=== PATIENT | female | born 1990 | race Caucasian/White ===

== ENCOUNTER 2021-02-09 12:15 | Emergency (ER) | payer OTHER, MEDICAID, SELFPAY ==
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
[2021-02-09 13:00] VITALS: BP 127/96; PULSE 77; RESP 18; TEMP 36.8; O2SAT 100; BMI 25.8
[2021-02-09] MEDS: Acetaminophen 325 MG TABLET 650 MG PO (13:09)
[2021-02-09] MEDS: clonazePAM 1 MG TABLET 2 MG PO (15:38)
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
[2021-02-09] MEDS: oxyCODONE HCl Immed Release 5 MG TABLET PO ×2 (17:07→20:38)
[2021-02-09 17:18] LABS: MANUAL DIFF FLAG NO
[2021-02-09 17:24] LABS: Basophils Percent Auto 0.3 % (0-2); Eosinophils Percent Auto 0.4 % (0-4); Hematocrit 36.1 % (37.0-47.0); Hemoglobin 11.9 g/dl (12.0-16.0); Imm Gran Abs Auto 0.03 X10*3/uL (0.00-0.03); Imm Gran Pct Auto 0.3 % (0.0-0.4); Lymphocytes Absolute Auto 2.9 X10*3/uL (1.2-4.9); Lymphocytes Percent Auto 30.3 % (20-40); Mean Corpuscular Hemoglobin 26.9 pg (27.0-33.0); Mean Corpuscular Volume 81.5 fL (80.0-98.0); Mean Platelet Volume 11.3 fL (9.4-12.3); Monocytes Absolute Auto 0.6 X10*3/uL (0.1-1.2); Neutrophils Percent Auto 62.7 % (45-73); Platelet Count 277 X10*3/uL (160-400); Red Blood Count 4.43 X10*6/uL (4.20-5.50); Red Cell Distribution Width 14.8 % (11.0-16.0); White Blood Count 9.6 X10*3/uL (4.8-10.8)
[2021-02-09 17:48] LABS: Alanine Aminotransferase 32 U/L (0-31); Albumin Level 4.4 g/dL (3.5-5.0); Alkaline Phosphatase 86 U/L (39-117); Anion Gap 11 (12-20); Aspartate Amino Transferase 34 U/L (5-31); Bilirubin Total 0.7 mg/dL (0.0-1.0); Blood Urea Nitrogen 10 mg/dL (9-16); Calcium 9.4 mg/dL (8.4-10.2); Carbon Dioxide 25 mmol/L (22-29); Chloride 106 mmol/L (96-108); Creatinine Clr Calc Pharmacy 105.6; Estimated Glomerular Filt Rate > 60; Glucose Random 84 mg/dL (60-115); Potassium 4.1 mmol/L (3.3-5.1); Sodium 138 mmol/L (135-145); Total Protein 7.7 g/dL (6.5-8.0)
[2021-02-09 17:53] LABS: HCG Quantitative < 2 mIU/mL
[2021-02-09] MEDS: iohexoL 350 MG/ML 100 ML INFUS..BTL IV (19:18)
[2021-02-09 19:37] VITALS: BP 125/77; PULSE 68; RESP 16; O2SAT 99
[2021-02-09 20:55] VITALS: BP 127/82; PULSE 62; RESP 18; O2SAT 98
== END 2021-02-09 20:56 | disposition home or self-care (01) ==
PROVIDERS: Physician Assistant Medical; Emergency Provider Emergency Medicine; PCP Internal Medicine
DX: S06.0X0A Concussion without loss of consciousness, initial encounter (principal); S83.92XA Sprain of unspecified site of left knee, initial encounter; S83.91XA Sprain of unspecified site of right knee, initial encounter; S76.012A Strain of muscle, fascia and tendon of left hip, initial encounter; S29.011A Strain of muscle and tendon of front wall of thorax, initial encounter; S39.012A Strain of muscle, fascia and tendon of lower back, initial encounter; T14.8XXA Other injury of unspecified body region, initial encounter; R93.7 Abnormal findings on diagnostic imaging of other parts of musculoskeletal system; R10.9 Unspecified abdominal pain; V47.5XXA Car driver injured in collision with fixed or stationary object in traffic accident, initial encounter; Y93.9 Activity, unspecified; Y92.410 Unspecified street and highway as the place of occurrence of the external cause; Y99.9 Unspecified external cause status
CPT/HCPCS: 36415; 70450; 71250; 72125; 73502; 73564; 74177; 80053; 84702; 85025; 99285; 99291; Q9967

== ENCOUNTER → 2021-05-06 10:15 | Outpatient (BNVA) | payer OTHER, SELFPAY | PROVIDERS: PCP Internal Medicine; Visit Provider Anesthesiology ==

== ENCOUNTER 2021-05-12 05:59 | Outpatient (REF) | payer OTHER, SELFPAY ==
--- NOTE | ~2021-05-12 | FL_ITS ---
EXAMINATION: XR FLUOROSCOPY WITH IMAGES CLINICAL INFORMATION: M46.1 - Sacroiliitis, not elsewhere classified COMPARISON: CT pelvis 02/09/2021 TECHNIQUE: Fluoroscopy performed by Dr. Javier Ndiaye. Fluoroscopy time: 0.3 minutes DAP: 0.802 Gycm2 Images: 1 FINDINGS: Spinal needle overlies lower right SI joint. There is contrast in the periarticular soft tissues with probable early intra-articular contrast. No vasculature communication appreciated. FL/FL guidance in treatment room IMPRESSION: Fluoroscopy for pain management procedure.
== END 2021-05-12 06:00 | disposition home or self-care (01) ==
LOC: HO.RADIR 05:59
PROVIDERS: Visit Provider Anesthesiology
DX: M46.1 Sacroiliitis, not elsewhere classified (principal); M47.816 Spondylosis without myelopathy or radiculopathy, lumbar region
CPT/HCPCS: 27096; J3300; Q9967

== ENCOUNTER → 2021-06-15 10:09 | Outpatient (BNVA) | payer OTHER, SELFPAY | PROVIDERS: PCP Internal Medicine; Visit Provider Anesthesiology | DX: M47.816 Spondylosis without myelopathy or radiculopathy, lumbar region (principal); M46.1 Sacroiliitis, not elsewhere classified | CPT/HCPCS: 99212 ==

== ENCOUNTER 2021-09-15 06:25 | Outpatient (REF) | payer OTHER, SELFPAY ==
--- NOTE | ~2021-09-15 | FL_ITS ---
EXAMINATION: XR FLUOROSCOPY WITH IMAGES CLINICAL INFORMATION: Sacroiliitis COMPARISON: May 12, 2021 TECHNIQUE: Fluoroscopy performed by Dr. Javier Ndiaye. Fluoroscopy time: 0.2 minutes DAP: 0.690 Gycm2 Images: 0 FINDINGS: Fluoroscopy for pain management procedure. FL/FL guidance in treatment room IMPRESSION: Fluoroscopy for pain management procedure.
== END 2021-09-15 06:26 | disposition home or self-care (01) ==
LOC: HO.RADIR 06:25
PROVIDERS: Visit Provider Anesthesiology
DX: M46.1 Sacroiliitis, not elsewhere classified (principal); M47.816 Spondylosis without myelopathy or radiculopathy, lumbar region
CPT/HCPCS: 27096; Q9966

== ENCOUNTER → 2022-03-31 14:18 | Outpatient (BNVA) | payer OTHER, SELFPAY | PROVIDERS: PCP Internal Medicine; Visit Provider Anesthesiology | DX: Z13.89 Encounter for screening for other disorder (principal) ==

== ENCOUNTER 2022-11-08 12:17 | Emergency (ER) | payer OTHER, MEDICAID, SELFPAY ==
[2022-11-08] VITALS (7 sets, daily range): BP systolic 114–157; BP diastolic 60–87; PULSE 51–62; RESP 16–18; TEMP 36.6–37.8; O2SAT 98–100; BMI 25.8
--- NOTE | ~2022-11-08 | CT_ITS ---
EXAMINATION: CT HEAD WITHOUT CONTRAST CLINICAL INFORMATION: Facial and extremity numbness, headache COMPARISON: January 2021. TECHNIQUE: Contiguous axial imaging was performed from the skull base to vertex without intravenous administration of contrast. This CT examination was performed using dose optimization techniques as appropriate, variously including the following: *Automated exposure control *Adjustment of mA and/or kV according to patient size (this includes techniques or standardized protocols for targeted exams where dose is matched to indication/reason for exam; i.e. extremities or head) *Use of iterative reconstruction technique DLP: 671 mGy-cm FINDINGS: No evidence for acute hemorrhage or mass effect. Cisterns unremarkable. The intraventricular system appears within normal limits. [place]/white matter differentiation is maintained. No appreciable extra-axial collections. The mastoids and skull base are unremarkable. No appreciable calvarial disruption. CT/CT head/brain wo IV con IMPRESSION: No acute intracranial pathology. No significant changes since previous evaluation.
--- NOTE | 2022-11-08 12:37 | ED_ITS ---
HPI - General Adult General Chief complaint: General Medical Stated complaint: dizzy facial numbness Time Seen by Provider: 11/08/22 20:21 Source: patient, RN notes reviewed and old records reviewed Mode of arrival: ambulatory Limitations: no limitations History of Present Illness HPI narrative: 32-year-old female with past medical history significant for anxiety, depression, hypothyroidism presents for evaluation of headache, nausea, dizziness. Patient reports that she vomited 1 time yesterday. She reports having numbness and tingling to her lower lip ever since. She denies any abdominal pain. She does report increased urination today but she feels it is mild She reports a frontal headache that is a at 10 with some light sensitivity No other complaints or concerns at this time. Related Data Home Medications Medication Instructions Recorded Confirmed clonazepam 1 mg tablet 1 mg PO TID 05/06/21 prazosin 2 mg capsule 2 mg PO BEDTIME 05/06/21 venlafaxine 75 mg capsule,extended 75 mg PO DAILY 05/06/21 release 24 hr Previous Rx's Medication Instructions Recorded acetaminophen 500 mg tablet 1,000 mg PO QID PRN fever or pain 02/09/21 (Tylenol Extra Strength) #14 tabs cyclobenzaprine 10 mg tablet 10 mg PO Q8H PRN Muscle spasm #14 02/09/21 tabs ibuprofen 800 mg tablet 800 mg PO Q8H PRN pain #14 tabs 02/09/21 oxycodone 5 mg tablet 5 mg PO Q6H PRN pain #14 tabs 02/09/21 tizanidine 4 mg capsule 4 mg PO Q8H PRN muscle spasticity 03/31/22 30 days #90 caps cefdinir 300 mg capsule 300 mg PO BID #14 caps 11/08/22 Allergies Allergy/AdvReac Type Severity Reaction Status Date / Time metoclopramide [From Reglan] AdvReac Nausea Verified 03/31/22 14:34 Review of Systems Constitutional: Constitutional: Reports as per HPI, Denies chills, Denies fatigue and Denies fever(s) Cardiovascular: Cardiovascular: Denies chest pain and Denies dyspnea Respiratory: Respiratory: Denies cough and Denies dyspnea Gastrointestinal: Gastrointestinal: Denies abdominal pain and Denies const ipation Neurologic: Denies focal weakness Endocrine: Endocrine: Denies fatigue [facility] Past Medical History Medical History (Updated 08/14/23 @ 20:46 by Cassius Jones) Anxiety Depression Sacroiliitis Spondylosis of lumbar spine Tear of MCL (medial collateral ligament) of knee Surgical History Tubal ligation status Social History Social History Alcohol intake: current Alcohol intake frequency: a few times a month Smoked in Last 30 Days: No Use of substances other than those prescribed or required for medical reasons: No Advance Directives: No Advance Directives Information Provided: No Physical Exam ED Vital Signs: Vital Signs - 24 hr 11/08/22 12:36 11/08/22 17:39 11/08/22 20:13 Temperature 98 F 98.1 F 98.9 F Pulse Rate 62 52 Respiratory Rate 18 16 Blood Pressure 131/81 156/69 H Pulse Oximetry 100 98 Oxygen Delivery Method Room Air Room Air 11/08/22 20:33 11/08/22 20:34 11/08/22 20:36 Temperature Pulse Rate 59 51 56 Respiratory Rate Blood Pressure 121/66 124/73 157/87 H Pulse Oximetry Oxygen Delivery Method BMI result Body Mass Index 25.8 Const General: healthy appearing, comfortable, no acute distress, alert and awake Nutritional Appearance: well nourished Orientation/consciousness: patient oriented x3 HENMT Head: Yes normocephalic and Yes atraumatic Throat: Yes posterior oropharynx normal Eyes Eyelids: Yes eyelids normal Conjunctivae: conjunctivae normal Sclerae: sclerae normal Corneas: corneas normal Pupils: Equal, round and reactive pupils present EOM: EOMs intact bilaterally Neck Neck: Yes full ROM Resp Effort & Inspection: normal respiratory effort, able to speak in complete sentences and not labored Cardio Rate: regular rate Rhythm: regular rhythm GI Inspection: No distended Palpation (GI): Soft to palpation, not firm, nontender, no guarding and not rigid Skin General skin exam: no rashes or lesions noted and elasticity normal Neuro General: patient oriented x3 Cranial nerves: Yes CN's II-XII intact bilaterally, Yes Equal, round and reactive pupils present and Yes Bilaterally intact EOM present Cognition (Neuro): normal cognition Extrem Other: Moving all extremities well without any obvious deformities Course Course Course Narrative: RME: 32yo F w/PMHx thyroid CA s/p thyroidectomy c/o c/o lower lip/chin, bilateral and feet numbness/tingling since 02:00AM Tuesday morning. Reports symptoms have been worsening. Also reports dizziness & off balance. Also reports chronic migraines. Denies taking anticoagulation, fall Patient in wheelchair in triage, no focal neuro deficits EKG, labs, UA, head CT and orthostatics ordered Full HPI, ROS and PE to be performed by primary ED provider. Medical Decision Making Medical Decision Making [facility] Narrative: 32-year-old female presents for evaluation of multiple complaints including headache, nausea. Showed severe to have a UTI. She is CT scan of brain that was unremarkable, labs are reassuring. Will get orthostatics to evaluate for volume status. Clinically the patient does not appear dehydrated. Will treat her headache with Fioricet and Toradol. Differential Diagnosis Differential Diagnoses: The differential diagnosis associated with the presentation includes Viral syndrome COVID-19 UTI Pyelonephritis Orthostasis Dehydration JOE Acute headache Lab Data [facility] Lab Attestation statement: I reviewed the patient's lab results. No leukocytosis with a white count 6.8, patient has a very mild anemia with a normal hemoglobin of 12.0 and a hematocrit just below normal at 36.6. Platelet count normal limits. Electrolytes and renal function within normal limits. UA appears to show acute infection with 4+ bacteria as well as nitrates, leukocyte esterase 11/08/22 13:07 11/08/22 13:07 Labs: Lab Results 11/08/22 11/08/22 11/08/22 Range/Units 13:07 13:07 13:07 WBC 6.8 (4.8-10.8) X10*3/uL RBC 4.21 (4.20-5.50) X10*6/uL Hgb 12.0 (12.0-16.0) g/dl Hct 36.6 L (37.0-47.0) % MCV 86.9 (80.0-98.0) fL MCH 28.5 (27.0-33.0) pg MCHC 32.8 (31.0-35.0) g/dl RDW 13.2 (11.0-16.0) % Plt Count 256 (160-400) X10*3/uL MPV 10.7 (9.4-12.3) fL Immature Gran % (Auto) 0.3 (0.0-0.4) % Neut % (Auto) 57.2 (45-73) % Lymph % (Auto) 33.8 (20-40) % [place] % (Auto) 6.0 (2-11) % Eos % (Auto) 2.4 (0-4) % Baso % (Auto) 0.3 (0-2) % Lymph # (Auto) 2.3 (1.2-4.9) X10*3/uL [place] # (Auto) 0.4 (0.1-1.2) X10*3/uL Eos # (Auto) 0.2 (0.0-0.4) X10*3/uL Baso # (Auto) 0.0 (0.0-0.2) X10*3/uL Abs Immat Gran (auto) 0.02 (0.00-0.03) X10*3/uL Absolute Neuts (auto) 3.9 (2.0-8.3) x10*3/uL Absolute Nucleated RBC 0.000 (0.0-0.012) X10*3/uL Nucleated RBC % (auto) 0.0 (0.0-0.2) /100WBC PT 12.4 (11.1-13.3) SEC INR 1.0 (0.9-1.1) Sodium 141 (135-145) mmol/L Potassium 3.8 (3.3-5.1) mmol/L Chloride 108 (96-108) mmol/L Carbon Dioxide 25 (22-29) mmol/L Anion Gap 12 (12-20) BUN 10 (9-16) mg/dL Creatinine 0.78 (0.5-1.4) mg/dL Estim Creat Clear Calc 110.3 Estimated GFR > 60 Random Glucose 83 (60-115) mg/dL Calcium 9.7 (8.4-10.2) mg/dL Magnesium 1.9 (1.6-2.6) mg/dL Total Bilirubin 0.5 (0.0-1.0) mg/dL Direct Bilirubin 0.2 (0.0-0.5) mg/dL AST 15 (5-31) U/L ALT 13 (0-31) U/L Alkaline Phosphatase 76 (39-117) U/L Total Protein 7.8 (6.5-8.0) g/dL Albumin 4.2 (3.5-5.0) g/dL Urine Color Urine Appearance Urine pH (5.0-9.0) Ur Specific [place] (1.005-1.025) Urine Protein (Neg-Trace) mg/dL Urine Glucose (UA) (Negative) mg/dL Urine Ketones (Negative) mg/dL Urine Blood (Negative) Urine Nitrite (Negative) Ur Leukocyte Esterase (Negative) Urine RBC (0-2) /HPF Urine WBC (0-5) /HPF Ur Squamous Epith Cells (0-2) /HPF Urine Bacteria (None Seen) Hyaline Casts (0-2) /LPF Urine Test (NEGATIVE) 11/08/22 11/08/22 Range/Units 17:46 17:46 WBC (4.8-10.8) X10*3/uL RBC (4.20-5.50) X10*6/uL Hgb (12.0-16.0) g/dl Hct (37.0-47.0) % MCV (80.0-98.0) fL MCH (27.0-33.0) pg MCHC (31.0-35.0) g/dl RDW (11.0-16.0) % Plt Count (160-400) X10*3/uL MPV (9.4-12.3) fL Immature Gran % (Auto) (0.0-0.4) % Neut % (Auto) (45-73) % Lymph % (Auto) (20-40) % [place] % (Auto) (2-11) % Eos % (Auto) (0-4) % Baso % (Auto) (0-2) % Lymph # (Auto) (1.2-4.9) X10*3/uL [place] # (Auto) (0.1-1.2) X10*3/uL Eos # (Auto) (0.0-0.4) X10*3/uL Baso # (Auto) (0.0-0.2) X10*3/uL Abs Immat Gran (auto) (0.00-0.03) X10*3/uL Absolute Neuts (auto) (2.0-8.3) x10*3/uL Absolute Nucleated RBC (0.0-0.012) X10*3/uL Nucleated RBC % (auto) (0.0-0.2) /100WBC PT (11.1-13.3) SEC INR (0.9-1.1) Sodium (135-145) mmol/L Potassium (3.3-5.1) mmol/L Chloride (96-108) mmol/L Carbon Dioxide (22-29) mmol/L Anion Gap (12-20) BUN (9-16) mg/dL Creatinine (0.5-1.4) mg/dL Estim Creat Clear Calc Estimated GFR Random Glucose (60-115) mg/dL Calcium (8.4-10.2) mg/dL Magnesium (1.6-2.6) mg/dL Total Bilirubin (0.0-1.0) mg/dL Direct Bilirubin (0.0-0.5) mg/dL AST (5-31) U/L ALT (0-31) U/L Alkaline Phosphatase (39-117) U/L Total Protein (6.5-8.0) g/dL Albumin (3.5-5.0) g/dL Urine Color Yellow Urine Appearance Turbid Urine pH 6.5 (5.0-9.0) Ur Specific [place] 1.020 (1.005-1.025) Urine Protein Trace (Neg-Trace) mg/dL Urine Glucose (UA) Negative (Negative) mg/dL Urine Ketones Negative (Negative) mg/dL Urine Blood Trace H (Negative) Urine Nitrite Positive H (Negative) Ur Leukocyte Esterase Large (3+) H (Negative) Urine RBC 0-2 (0-2) /HPF Urine WBC >50 H (0-5) /HPF Ur Squamous Epith Cells >20 (0-2) /HPF Urine Bacteria 4+ (None Seen) Hyaline Casts 3-5 (0-2) /LPF Urine Test NEGATIVE (NEGATIVE) Independent Interpretation I performed an independent interpretation of an: CT Scan Interpretation: Agree with Radiology interpretation, no acute bleed or obvious mass Radiology Impression Discussion of test interpretation with radiology: I have reviewed the radiologist's reading. Radiologist Impression: No acute intracranial pathology. No significant changes since previous evaluation Discharge Plan Discharge Clinical Impression: Urinary tract infection, Headache Patient Disposition: Home, Self-Care Instructions: Urinary Tract Infection in Women (ED) Additional Instructions: Urine CT scan and blood work not show any concerning findings. Your urine does appear infected. Take cefdinir twice daily for the next 7 days Hydrate well Use Motrin Tylenol for headaches Prescriptions: New cefdinir 300 mg capsule 300 mg PO BID Qty: 14 0RF No Action cyclobenzaprine 10 mg tablet 10 mg PO Q8H PRN (Reason: Muscle spasm) Qty: 14 0RF ibuprofen 800 mg tablet 800 mg PO Q8H PRN (Reason: pain) Qty: 14 0RF acetaminophen [Tylenol Extra Strength] 500 mg tablet 1,000 mg PO QID PRN (Reason: fever or pain) Qty: 14 0RF oxycodone 5 mg tablet 5 mg PO Q6H PRN (Reason: pain) Qty: 14 0RF clonazepam 1 mg tablet 1 mg PO TID venlafaxine 75 mg capsule,extended release 24hr 75 mg PO DAILY prazosin 2 mg capsule 2 mg PO BEDTIME tizanidine 4 mg capsule 4 mg PO Q8H PRN (Reason: muscle spasticity) 30 Days Qty: 90 5RF
--- NOTE | 2022-11-08 12:40 | ECG_ITS ---
Test Reason : NUMBNESS Blood Pressure : / mmHG Vent. Rate : 060 BPM Atrial Rate : 060 BPM P-R Int : 156 ms QRS Dur : 084 ms QT Int : 414 ms P-R-T Axes : 014 071 059 degrees QTc Int : 414 ms Normal sinus rhythm with sinus arrhythmia Normal ECG No previous ECGs available Referred By: Marielos Palacios Electronically Signed By:SARAH CHAPMAN MD
[2022-11-08 13:12] LABS: MANUAL DIFF FLAG NO
[2022-11-08 13:13] LABS: Basophils Percent Auto 0.3 % (0-2); Eosinophils Absolute Auto 0.2 X10*3/uL (0.0-0.4); Eosinophils Percent Auto 2.4 % (0-4); Hematocrit 36.6 % (37.0-47.0); Imm Gran Abs Auto 0.02 X10*3/uL (0.00-0.03); Imm Gran Pct Auto 0.3 % (0.0-0.4); Lymphocytes Absolute Auto 2.3 X10*3/uL (1.2-4.9); Lymphocytes Percent Auto 33.8 % (20-40); Mean Corpuscular HGB Conc 32.8 g/dl (31.0-35.0); Mean Corpuscular Hemoglobin 28.5 pg (27.0-33.0); Mean Corpuscular Volume 86.9 fL (80.0-98.0); Mean Platelet Volume 10.7 fL (9.4-12.3); Monocytes Absolute Auto 0.4 X10*3/uL (0.1-1.2); Neutrophils Absolute Auto 3.9 x10*3/uL (2.0-8.3); Neutrophils Percent Auto 57.2 % (45-73); Platelet Count 256 X10*3/uL (160-400); Red Blood Count 4.21 X10*6/uL (4.20-5.50); Red Cell Distribution Width 13.2 % (11.0-16.0); White Blood Count 6.8 X10*3/uL (4.8-10.8)
[2022-11-08 13:17] LABS: Prothrombin Time 12.4 SEC (11.1-13.3)
[2022-11-08 13:29] LABS: Alanine Aminotransferase 13 U/L (0-31); Albumin Level 4.2 g/dL (3.5-5.0); Alkaline Phosphatase 76 U/L (39-117); Anion Gap 12 (12-20); Aspartate Amino Transferase 15 U/L (5-31); Bilirubin Direct 0.2 mg/dL (0.0-0.5); Bilirubin Total 0.5 mg/dL (0.0-1.0); Blood Urea Nitrogen 10 mg/dL (9-16); Calcium 9.7 mg/dL (8.4-10.2); Carbon Dioxide 25 mmol/L (22-29); Chloride 108 mmol/L (96-108); Creatinine Clr Calc Pharmacy 110.3; Estimated Glomerular Filt Rate > 60; Glucose Random 83 mg/dL (60-115); Magnesium 1.9 mg/dL (1.6-2.6); Potassium 3.8 mmol/L (3.3-5.1); Sodium 141 mmol/L (135-145); Total Protein 7.8 g/dL (6.5-8.0)
[2022-11-08 17:55] LABS: Appearance Urine Turbid; Color Urine Yellow; Glucose Urine UA Negative (Negative); Leukocyte Esterase Urine Large (3+) (Negative); Nitrite Urine Positive (Negative); PH 6.5 (5.0-9.0); UMIC TRIGGER UACC YES; UPreg QC Valid YES; Urine Blood Trace (Negative); Urine Ketones Negative (Negative); Urine Pregnancy NEGATIVE (NEGATIVE); Urine Protein Trace mg/dL (Neg-Trace)
[2022-11-08 17:58] LABS: Bacteria Urine 4+ (None Seen); RBC Urine 0-2 /HPF (0-2); Squamous Epithelial Cell Urine >20 /HPF (0-2); UACC Culture Trigger YES; WBC Urine >50 /HPF (0-5)
[2022-11-08] MEDS: Butalb/Acetamin/Caff 50/325/40 TABLET 2 TAB PO (20:51)
[2022-11-08] MEDS: Ketorolac Tromethamine 30 MG/ML VIAL IM (20:51)
== END 2022-11-08 21:19 | disposition home or self-care (01) ==
PROVIDERS: Physician Assistant; Emergency Provider Emergency Medicine; PCP Internal Medicine
DX: N39.0 Urinary tract infection, site not specified (principal); B96.20 Unspecified Escherichia coli [E. coli] as the cause of diseases classified elsewhere; R51.9 Headache, unspecified; R20.2 Paresthesia of skin; D64.9 Anemia, unspecified; Z85.850 Personal history of malignant neoplasm of thyroid; Z79.899 Other long term (current) drug therapy
CPT/HCPCS: 36415; 70450; 80048; 80076; 81001; 81025; 83735; 85025; 85610; 87086; 87088; 87186; 93005; 96372; 99284; 99285; J1885

== ENCOUNTER → 2022-11-08 12:40 | Outpatient (BNV) | payer OTHER, MEDICAID, SELFPAY | PROVIDERS: PCP Internal Medicine; Visit Provider Internal Medicine Cardiovascular Disease | DX: I49.9 Cardiac arrhythmia, unspecified (principal) | CPT/HCPCS: 93010 ==

== ENCOUNTER 2023-08-10 14:00 | Outpatient (AMB) | payer OTHER, MEDICAID, SELFPAY ==
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
[2023-08-10 14:23] VITALS: BP 132/84; PULSE 77; RESP 16; O2SAT 98; BMI 26.5
== END 2023-08-10 14:48 | disposition home or self-care (01) ==
PROVIDERS: PCP Internal Medicine; Visit Provider Anesthesiology
DX: M46.1 Sacroiliitis, not elsewhere classified (principal); M47.816 Spondylosis without myelopathy or radiculopathy, lumbar region
CPT/HCPCS: 99214

== ENCOUNTER → 2023-08-10 14:00 | Outpatient (BNVA) | payer OTHER, MEDICAID, SELFPAY | PROVIDERS: PCP Internal Medicine; Visit Provider Anesthesiology ==

== ENCOUNTER 2023-09-07 14:02 | Outpatient (AMB) | payer OTHER, MEDICAID, SELFPAY ==
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
[2023-09-07 14:32] VITALS: BP 115/68; PULSE 61; RESP 14; O2SAT 100; BMI 26.7
== END 2023-09-07 14:41 | disposition home or self-care (01) ==
PROVIDERS: PCP Internal Medicine; Visit Provider Anesthesiology
DX: M46.1 Sacroiliitis, not elsewhere classified (principal); M47.816 Spondylosis without myelopathy or radiculopathy, lumbar region; M51.36 Other intervertebral disc degeneration, lumbar region; M54.16 Radiculopathy, lumbar region
CPT/HCPCS: 99213

== ENCOUNTER → 2023-09-07 14:02 | Outpatient (BNVA) | payer OTHER, MEDICAID, SELFPAY | PROVIDERS: PCP Internal Medicine; Visit Provider Anesthesiology ==

== ENCOUNTER 2023-10-21 13:28 | Outpatient (REF) | payer OTHER, MEDICAID, SELFPAY ==
--- NOTE | ~2023-10-21 | MR_ITS ---
EXAMINATION: MR LUMBAR SPINE WITHOUT CONTRAST CLINICAL INFORMATION: Lumbar radiculopathy. Right lower extremity pain, numbness, and weakness. COMPARISON: CT abdomen and pelvis 04/11/2020. TECHNIQUE: MRI of the lumbar spine was obtained using routine sequences without contrast. FINDINGS: Alignment is normal. Vertebral body heights are preserved. No acute bone marrow signal changes. Intervertebral disc height and signal intensity is maintained at all levels. Annular contours are normal and there is no canal or neuroforaminal compromise. 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 Otherwise no mass effect on the traversing or foraminal nerve roots elsewhere within the [id number] of this examination. No canal stenosis. The tip of the conus medullaris is located at T12-L1. No mass effect on the conus or visualized distal cord signal intensity is normal. Limited visualization of the retroperitoneal anatomy reveals no abnormal findings. Psoas and paraspinal muscle groups are symmetric. 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 Otherwise unremarkable examination. No mass effect on the traversing or foraminal nerve roots. No canal stenosis. Electronically signed by: Kush Laura MD 11/20/2023 03:26 PM EDT
== END 2023-10-21 13:29 | disposition home or self-care (01) ==
LOC: HO.MRI 13:28
PROVIDERS: PCP Internal Medicine; Visit Provider Anesthesiology
DX: M54.16 Radiculopathy, lumbar region (principal); M51.36 Other intervertebral disc degeneration, lumbar region
CPT/HCPCS: 72148

== ENCOUNTER 2023-12-15 09:59 | Outpatient (AMB) | payer OTHER, MEDICAID, SELFPAY ==
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
[2023-12-15 10:19] VITALS: BP 126/82; PULSE 83; RESP 16; O2SAT 99; BMI 26.9
== END 2023-12-15 10:27 | disposition home or self-care (01) ==
PROVIDERS: PCP Internal Medicine; Visit Provider Anesthesiology
DX: M46.1 Sacroiliitis, not elsewhere classified (principal); M47.816 Spondylosis without myelopathy or radiculopathy, lumbar region; M51.36 Other intervertebral disc degeneration, lumbar region; M54.16 Radiculopathy, lumbar region
CPT/HCPCS: 99213

== ENCOUNTER → 2023-12-15 09:59 | Outpatient (BNVA) | payer OTHER, MEDICAID, SELFPAY | PROVIDERS: PCP Internal Medicine; Visit Provider Anesthesiology ==

== ENCOUNTER 2024-07-12 09:04 | Outpatient (AMB) | payer OTHER, MEDICAID, SELFPAY ==
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
[2024-07-12 09:10] VITALS: BP 121/69; PULSE 51; O2SAT 98; BMI 26.2
--- OUTSIDE RECORDS SUMMARY | 2024-07-12 09:58 | XMS_ITS | Patient Health Record ---
Author Organization [facility] Address [address] [place] [address] Care Team Providers Care Group Sales Coordinator Name Role Phone MARVIN MONCADA Primary Care Provide r Unavailable Isha Joe Unavailable [phone] Reason For Referral No Information Medications Medication SIG (Take, Route, Fr equency, Duration) Notes Start Date End Date Status Valtrex 1 GM 1 tablet Orally qd for 90 01/06/2016 Active 27-1 MG as directed Orally qd for 365 days 07/20/2016 Active Multivitamins 1 ORAL daily for -3 Galo-MJ 03/26/2014 Active iron 1 tab Oral Active PROzac 40 MG 1 capsule in the mor rupa Orally Once a day Active Immunizations Vaccine Route Administration Date Status Comme nts HPV (human papillomavirus), quadrivalent, 3 dose schedule Unknown 03/24/2012 Pending Problems Problem Type SNOMED Code ICD Code Onset Dates Problem Status W/U Status Risk Notes Problem Major depression, single episode (39544363) Major depressive disorder, single episode, unspecified (F32.9) Active confirmed Problem Herpetic vulvovaginitis (62480370) Herpesviral vulvovaginitis (A60.04) Active confirmed Problem Ulcerative colitis (02805778) Ulcerative colitis, unspecified with unspecified complications (K51.919) Active confirmed Plan Of Treatment Pending Test Test Name Order Date Aerobic Bacterial Culture 05/18/2016 ONE SWAB 05/18/2016 COMPLETE CBC WITH DIFF 05/18/2016 HSV 1 IGG 01/06/2016 Insurance Providers Payer Name Payer Address Payer Phone Subscriber Number Group Number Insured Name Patient Relationship to Insured Coverage Start Date Coverage End Date [facility] [address] [place] [address] [id number] BINDU EDMOND Natural Child - Insured has Financial Responsibility Medications Administered Medication Instructions Date of Administration Dosage Notes CEFTRIAXONE 05/18/2016 250 mg DRAWN UP WITH 0.9ML OF LIDOCAINE Medical (General) History Medical History History ICD Code Other specified abnormal uterine and vag inal bleeding N93.8 Surgical History Surgery Date(Month/Year) Left Knee Arthroscopy Hospitalization History Reason Date(Month/Year) 1 Vaginal Delivery
== END 2024-07-12 09:25 | disposition home or self-care (01) ==
LOC: HO.PMC 09:05
PROVIDERS: PCP Internal Medicine; Visit Provider Anesthesiology
DX: M46.1 Sacroiliitis, not elsewhere classified (principal); M47.816 Spondylosis without myelopathy or radiculopathy, lumbar region; M53.3 Sacrococcygeal disorders, not elsewhere classified
CPT/HCPCS: 99213

== ENCOUNTER → 2024-07-12 09:04 | Outpatient (BNVA) | payer OTHER, MEDICAID, SELFPAY | PROVIDERS: PCP Internal Medicine; Visit Provider Anesthesiology ==

== ENCOUNTER → 2024-09-04 10:30 | Outpatient (BNV) | payer OTHER, MEDICAID, SELFPAY | PROVIDERS: Visit Provider Psychiatry & Neurology Psychiatry | DX: F33.9 Major depressive disorder, recurrent, unspecified (principal); F90.9 Attention-deficit hyperactivity disorder, unspecified type; F43.10 Post-traumatic stress disorder, unspecified; F50.20 Bulimia nervosa, unspecified | CPT/HCPCS: 99214 ==

== ENCOUNTER 2024-09-06 10:30 | Outpatient (RCR) | payer OTHER, MEDICAID, SELFPAY ==
[2024-08-24 10:22] VITALS: BP 116/68; PULSE 52; RESP 16; TEMP 37.2
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
--- NOTE | 2024-08-30 16:20 | HO.PHP ---
Clients case was opened and reviewed in teams today.
--- NOTE | 2024-09-04 22:04 | HO.PHPPROGNO ---
Subjective Subjective Date of Service: 09/04/24 Reason For Visit: PTSD,anxiety,depression Interim History: Patient seen for follow up. Has continued on ABilify on 2 mg for past week. Denies AE. Sleep issues, disrupted sleep. Executive dysfunction discussed. Does not feel prazosin is doing much for her sleep, still has occasional bed dreams. Denies acute/active PTSD symptoms.. HAs taken higher dose of prazosin but caused issues. Has taken clonidine and Ambien for sleep. Medication Compliance: Yes Side effects from medications: No Attending Groups: Yes Review of Systems Acute medical concerns: No Mental Status Exam Mental Status Exam Narrative: Alert, oriented, in no acute distress. Calm, cooperative, engaged, friendly, animated. Restlessness, no psychomotor agitation or neurovegetative retardation. Eye contact maintained. Mood reactive, affect variable, not irritable or lability. Speech normal. Thought process linear, coherent. Thought content related to stressors, executive dysfunction, denies transient helplessness, hopelessness denies SI, intention, urge or plan. Denies any aggressive ideation or HI. No paranoia or delusional content elicited. No evidence of psychosis. Insight and judgment - fair but adequate Assessment & Plan Assessment & Plan (1) MDD (major depressive disorder), recurrent episode: Status: Acute Code(s): F33.9 - Major depressive disorder, recurrent, unspecified (2) Attention-deficit hyperactivity disorder, unspecified type: Status: Acute Code(s): F90.9 - Attention-deficit hyperactivity disorder, unspecified type (3) PTSD (post-traumatic stress disorder): Status: Acute Code(s): F43.10 - Post-traumatic stress disorder, unspecified (4) Bulimia nervosa: Status: Acute Code(s): F50.20 - Bulimia nervosa, unspecified Plan decrease venlafaxine ER to 187.5 mg qd discontinue prazosin 3 mg start guanfacine ER 1 mg, may move to 2 mg/d (or split) increase Abilify to 3-4 mg qhs start gabapening routine lab work, EKG, UDS as indicated continue to monitor Patient educated on: diagnosis and medication risk/benefits Informed Consent: understands Reason for contiued partial hosp. stay Substantial Risk for: med/psych decompensation Certification I certify that partial hospital treatment is medically necessary due to the symptoms and problems resulting from the patient's mental illness and the failure to treat the patient at the partial hospital level of care would likely result in the patient requiring inpatient psychiatric care which could not be prevented at a less intensive level of care. Total time managing care of this patient today __30__ minutes. Discharge Plan Discharge Attending provider: Blanca Eaton Medications: New aripiprazole 2 mg tablet 2 mg PO BEDTIME Qty: 14 0RF lisdexamfetamine 10 mg capsule 10 mg PO QAM Qty: 30 0RF Rx Instructions: Partial Fill upon patient request. guanfacine 1 mg tablet extended release 24 hr 1 mg PO DAILY Qty: 30 0RF gabapentin 300 mg capsule 300 mg PO BEDTIME Qty: 20 0RF venlafaxine 37.5 mg capsule,extended release 24hr 37.5 mg PO DAILY Qty: 30 0RF Continued baclofen 20 mg tablet 20 mg PO BID 30 Days Qty: 60 8RF Nurtec ODT 75 mg Tablet,Disintegrating 75 mg PO DAILY PRN (Reason: Migraine Headache) prazosin 1 mg Capsule 3 mg PO BEDTIME levothyroxine 100 mcg Tablet 100 mcg PO DAILY topiramate [Topamax] 50 mg Tablet 50 mg PO DAILY PRN (Reason: Migraine Headache) clonazepam 1 mg tablet 1 mg PO TID venlafaxine 75 mg capsule,extended release 24hr 150 mg PO DAILY Discontinued atomoxetine [Strattera] 25 mg Capsule 25 mg PO DAILY Print Language: Ukrainian
--- NOTE | 2024-09-06 17:51 | HO.PHPPROGNO ---
Subjective Subjective Date of Service: 09/06/24 Reason For Visit: PTSD,anxiety,depression Assessment & Plan Certification I certify that partial hospital treatment is medically necessary due to the symptoms and problems resulting from the patient's mental illness and the failure to treat the patient at the partial hospital level of care would likely result in the patient requiring inpatient psychiatric care which could not be prevented at a less intensive level of care. Total time managing care of this patient today ____ minutes. Discharge Plan Discharge Attending provider: Blanca Eaton Medications: New lisdexamfetamine 10 mg capsule 10 mg PO QAM Qty: 30 0RF Rx Instructions: Partial Fill upon patient request. guanfacine 1 mg tablet extended release 24 hr 1 mg PO DAILY Qty: 30 0RF gabapentin 300 mg capsule 300 mg PO BEDTIME Qty: 20 0RF venlafaxine 37.5 mg capsule,extended release 24hr 37.5 mg PO DAILY Qty: 30 0RF Continued baclofen 20 mg tablet 20 mg PO BID 30 Days Qty: 60 8RF Nurtec ODT 75 mg Tablet,Disintegrating 75 mg PO DAILY PRN (Reason: Migraine Headache) levothyroxine 100 mcg Tablet 100 mcg PO DAILY topiramate [Topamax] 50 mg Tablet 50 mg PO DAILY PRN (Reason: Migraine Headache) venlafaxine 75 mg capsule,extended release 24hr 150 mg PO DAILY Changed aripiprazole 5 mg tablet 7.5 mg PO BEDTIME Qty: 30 0RF clonazepam 1 mg tablet 1 mg PO TID PRN (Reason: Anxiety) Qty: 1 0RF Discontinued atomoxetine [Strattera] 25 mg Capsule 25 mg PO DAILY prazosin 1 mg Capsule 3 mg PO BEDTIME Stand Alone Forms: Patient Portal Discharge page Patient Education: Mood Disorders (ED), Mood Disorders (DC), ADHD in Adults (ED), ADHD in Adults (DC), PTSD (Post Traumatic Stress Disorder) (DC) Print Language: Macedonian
== END 2024-09-06 23:59 | disposition home or self-care (01) ==
LOC: HO.PHPA 10:30
PROVIDERS: Visit Provider Psychiatry & Neurology Psychiatry
DX: F33.9 Major depressive disorder, recurrent, unspecified (principal); F90.9 Attention-deficit hyperactivity disorder, unspecified type; F43.10 Post-traumatic stress disorder, unspecified; F50.20 Bulimia nervosa, unspecified; Z79.899 Other long term (current) drug therapy
CPT/HCPCS: 90791; 90853

== ENCOUNTER 2024-11-13 07:09 | Outpatient (AMB) | payer OTHER, MEDICAID, SELFPAY ==
--- OUTSIDE RECORDS SUMMARY | 2024-11-13 07:11 | XMS_ITS ---
Author Name [facility] Organization Unknown Care Team Organization Name Specialty Phone Email Start Date End Da te [facility] NULL Primary Care 02/02/2022 11/14/2023
--- OUTSIDE RECORDS SUMMARY | 2024-11-13 07:11 | XMS_ITS | Patient Health Record ---
Author Organization [facility] Address [address] [place] [address] Care Team Providers Care Trouble Dispatcher Name Role Phone MARVIN MONCADA Primary Care Provide r Blanco Isha Joe Unavailable [phone] Reason For Referral No Information Medications Medication SIG (Take, Route, Fr equency, Duration) Notes Start Date End Date Status Valtrex 1 GM 1 tablet Orally qd; Duration: 90 12/26 Active 27-1 MG as directed Orally q d; Duration: 365 days 07/20/2016 Active Multivitamins 1 ORAL daily; Duration: -3 Galo-MJ 4 Active iron 1 tab Oral Active PROzac 40 MG 1 capsule in the mor rupa Orally Once a day Active Immunizations Vaccine Route Administration Date Status Comme nts HPV (human papillomavirus), quadrivalent, 3 dose schedule Unknown 03/24/2012 Pending Problems Problem Type SNOMED Code ICD Code Onset Dates Problem Status W/U Status Risk Notes Problem Major depression, single episode (63799610) Major depressive disorder, single episode, unspecified (F32.9) Active confirmed Problem Herpetic vulvovaginitis (87559020) Herpesviral vulvovaginitis (A60.04) Active confirmed Problem Ulcerative colitis, unspecified with unspecified complications (K51.919) Active confirmed Plan Of Treatment Pending Test Test Name Order Date Aerobic Bacterial Culture 05/18/2016 ONE SWAB 05/18/2016 COMPLETE CBC WITH DIFF 05/18/2016 HSV 1 IGG 01/06/2016 Insurance Providers Payer Name Payer Address Payer Phone Subscriber Number Group Number Insured Name Patient Relationship to Insured Coverage Start Date Coverage End Date [facility] [address] [place] [address] [phone] [id number] BINDU EDMOND Child - Insured has Financial Responsibility Medications Administered Medication Instructions Date of Administration Dosage Notes CEFTRIAXONE 05/18/2016 250 mg DRAWN UP WITH 0.9ML OF LIDOCAINE Medical (General) History Medical History History ICD Code Other specified abnormal uterine and vag inal bleeding N93.8 Surgical History Surgery Date(Month/Year) Left Knee Arthroscopy Hospitalization History Reason Date(Month/Year) 1 Vaginal Delivery
--- OUTSIDE RECORDS SUMMARY | 2024-11-13 07:11 | XMS_ITS | Clinical Summary ---
Author Organization [facility] [address] [place] [address] [place] [id number] Phone Care Team Providers Care Binding Printer Name Role Phone Nakul Golden MD Primary Care Provider [phone] Allergies Active Allergy Reactions Criticality Noted Date Comments Metoclopramide Headache High 09/13/2019 Tramadol 10/05/2021 Facial swelling Medications topiramate (TOPAMAX) 50 mg tablet Take by mouth. Active rimegepant (Nurtec) 75 mg dispersible tablet Take by mouth. Active SUMAtriptan (IMITREX) 25 mg tablet May repeat dose once after 2 hours, if needed. 3 Active ibuprofen (ADVIL,MOTRIN) 800 mg tablet Take 1 tablet (800 mg total) by mouth every 8 (eight) hours if needed. 3 Active sulfacetamide sodium-sulfur 9-4 % cleanser Apply topically. 2 Active clonazePAM (KlonoPIN) 1 mg disintegrating tablet Take by mouth. Active prazosin (MINIPRESS) 2 mg capsule Take by mouth. Active levothyroxine (SYNTHROID, LEVOTHROID) 100 mcg tabletIndications:S ubclinical hyperthyroidism Take 1 tablet (100 mcg total) by mouth 1 (one) time each day. 90 tablet 5 Active levothyroxine (SYNTHROID, LEVOTHROID) 100 mcg tablet Take 1 tablet (100 mcg total) by mouth 1 (one) time each day. 4 10/19/19 25 Discontin ued(Reord er) Active Problems Problem Noted Date Diagnosed Date Multinodular goiter 04/08/2021 Anxiety 01/26/2018 Mild episode of recurrent ma migue depressive disorder (CMS/[facility] V24) 01/18/2018 Panic disorder 12/15/2017 PTSD (post-traumatic stress disorder) 11/07/2017 Subclinical hyperthyroidism 05/10/2016 Ulcerative colitis ([facility] V24, [facility] V28) Encounters Date Type Department Care Team Description 10/25/2024 10:01 AM EDT - 10/25/2024 11:59 PM EDT Hospital Encounter Radiology Department - [address] [phone] Subclinical hyperthyroidism Discharge Disposition: Home or Self Care 10/18/2024 3:30 PM EDT Office Visit Endocrinology - [address] [phone] Joesph Dinh MD Subclinical hyperthyroidism (Primary Dx); Multinodular goiter 09/04/2024 Telephone Endocrinology - [address] [phone] Joesph Dinh MD Labs Only from Last 3 Months Immunizations Name Administration Dates Next Due Influenza Quadrivalent, 0.5m l, preservative free (Fluarix; FluLaval; Fluzone) ages 6mo and older (Afluria) 3yo and older 02/24/2021,12/25/2019 Influenza trivalent, 0.5mL, preservative free (Fluarix; FluLaval; Fluzone) ages 6mo and older (Afluria) 3 years and older 01/12/2017,03/03/2015,04/03/2014 Influenza, Unspecified 01/11/2018 Meningococcal MCV4P 11/28/2013 Moderna SARS-CoV-2 COVID-19, mRNA, LNP-S, preservative free 05/30/2020,05/02/2020 Tdap Tetanus diptheria acell ular pertussis (Boostrix; Adacel) 7yo and older 12/25/2019,02/09/2017,12/26/2012 Surgical History Surgery Date Site/Laterality Comments SECTION 12/26/2012 PROCEDURE: AL DELIVERY ONLY KNEE SURGERY 2010 PROCEDURE: HISTORICAL KNEE SURGERY; COMMENT: left patellofemoral repair KNEE ARTHROSCOPY 07/28/2021 Right PROCEDURE: AL ARTHROSCOPY AID TX SPINE&/FX KNEE W/O FIXJ; COMMENT: Right knee arthroscopic plica resection. Medial meniscus repair. Partial lateral meniscectomy with Dr. Guan Medical History Medical History Date Comments Ulcerative colitis, chronic (CMS/HCC V24, CMS/HCC V28) DX:Ulcerative colitis, chron ic (HCC) H/O colonoscopy 04/10/2015 DX:H/O colonosco py Refusal of blood transfusion s as patient is Latter-day DX:Refusal of blood trans fusions as patient is Latter-day Subclinical hyperthyroidism DX:S ubclinical hyperthyroidism History of colonoscopy 03/03/2021 DX:Histor y of colonoscopy; COMMENT: at [facility] by Dr. Sarmad Moreno - Normal mucosa in the whole colon and rectum. Multiple cold forceps biopsies were performed for histology. Anxiety state DX:Anxiety state Depressive disorder DX:Depressiv e disorder Family History Medical History Relation Name Comments Other: skin cancer Father Diabetes Mother htn Relation Name Status Comments Father Alive Mother Alive Social History Tobacco Use Types Packs/Day Years Used Date Smoking Tobacco: Never Smokeless Tobacco: Never Alcohol Use Standard Drinks/Week Comments Yes 0 (1 standard drink = 0.6 oz pur e alcohol) Comments Unknown Sex and Gender Information Value Date Recorded Sex Assigned at Not on file Legal Sex Female 10:11 PM EST Gender Identity Not on file Sexual Orientation Not on file Obstetrics History Last Filed Vital Signs Vital Sign Reading Time Taken Comments Blood Pressure 95/65 10/18/2024 3:32 PM EDT Pulse 74 10/18/2024 3:32 PM EDT Temperature - - Respiratory Rate 14 10/18/2024 3:32 PM EDT Oxygen Saturation - - Inhaled Oxygen Concentration - - Weight 74.4 kg (164 lb) 10/18/2024 3:32 PM EDT Height 168.9 cm (5' 6.5 ) 10/18/2024 3:32 PM EDT Body Mass Index 26.07 10/18/2024 3:32 PM EDT Plan of Treatment Health Maintenance Due Date Last Done Comments HIV Screening 04/28/2019 Social Influencers of Health Screening 04/28/2019 Cervical Cancer Screening: Pap Smear 09/10/2019 09/09/2016, 09/09/2016 COVID-19 Vaccine ( season) 2023 05/08/2021, 05/30/2020, 05/02/2020 Depression Screening 03/28/2024 Influenza Vaccine (#1) 2024 , 12/31/2022, 04/15/2022, Additional history exists DTaP,Tdap,and Td Vaccines (11 - Td or Tdap) 12/24/2029 12/25/2019, 02/09/2017, 01/12/2017, Additional history exists Colorectal Cancer Screening: Colonoscopy 03/03/2031 03/03/2021 Hepatitis B Vaccines Completed 04/27/1992, 1991, 1991 HIB Vaccines Completed 01/06/1993, 03/29, 02/14/1992, Additional history exists IPV Vaccines Completed 11/05/1996, 03/29, 02/13/1992, Additional history exists Varicella Vaccines Completed 10/31/2007, 11/02/1995 HPV Vaccines Completed 11/22/2008, 0 07/2007, 11/01/2006 Meningococcal ACWY Vaccine Aged Out 11/28/2013, No longer eligible based on patient's age to complete this topic MMR Vaccines Completed 02/09/2020, 09/1995, 01/06/1993 Hepatitis C Screening Completed 07/06/2022 Hepatitis A Vaccines Aged Out No long er eligible based on patient's age to complete this topic Meningococcal B Vaccine Aged Out No l onger eligible based on patient's age to complete this topic Pneumococcal Vaccine: Pediatrics (0 to 5 Years) and At-Risk Patients (6 to 49 Years) Aged Out No longer eligible based on patient's age to complete this topic RSV Immunization Patients Under 20 months Aged Out No longer eligible based on patient's age to complete this topic Procedures Procedure Name Priority Date/Time Associated Diagnosis Comments HEAD NECK SOFT TISSUE Routine 10/25/2024 10:21 AM EDT Subclinical hyperthyroidism COLONOSCOPY Routine 03/03/2021 HPV Routine 09/09/2016 from Last 3 Months or Most Recently Relevant to Health Maintenance Results * US Head Neck Soft Tissue (10/25/2024 10:21 AM EDT) Anatomical Region Laterality Modality Head and Neck Ultrasound 10/25/2024 12:0 2 PM EDT Impressions 10/25/2024 12:04 PM EDT Unchanged subcentimeter right thyroid nodule. Status post left hemithyroidectomy. No ultrasound abnormality is seen in the left thyroid bed. -------- FINAL REPORT -------- Dictated By: Hamida Kennedy Dictated Date: 10/25/2024 12:02 ET Assigned Physician: Hamida Kennedy Reviewed and Electronically Signed By: Hamida Kennedy Signed Date: 10/25/2024 12:04 ET Workstation ID: [id number] Transcribed By: Self Edit Transcribed Date: 10/25/2024 12:02 ET Narrative 10/25/2024 12:04 PM EDT US HEAD NECK SOFT TISSUE THYROID SOFT TISSUES NECK HISTORY: Nodule? Status post left hemithyroidectomy. FINDINGS: The right lobe of the thyroid gland is normal in echotexture and demonstrates increased vascularity by color Doppler interrogation. 0.5 x 0.2 x 0.4 cm nodule midpole right lobe, previously 0.5 x 0.3 x 0.4 cm. The right lobe of the thyroid measures 4.2 x 0.9 x 1.3 cm. The left lobe of the thyroid is surgically absent. Ultrasound evaluation of the left thyroid bed demonstrates no residual or recurrent thyroid tissue. The thyroid isthmus measures 3 mm in thickness. Procedure Note Hamida Kennedy MD - 10/25/2024 US HEAD NECK SOFT TISSUE THYROID SOFT TISSUES NECK HISTORY: Nodule? Status post left hemithyroidectomy. FINDINGS: The right lobe of the thyroid gland is normal in echotexture anddemonstrates increased vascularity by color Doppler interrogation. 0.5 x 0.2 x 0.4 cm nodule midpole right lobe, previously 0.5 x 0.3 x 0.4cm. The right lobe of the thyroid measures 4.2 x 0.9 x 1.3 cm. The left lobe of the thyroid is surgically absent. Ultrasound evaluationof the left thyroid bed demonstrates no residual or recurrent thyroidtissue. The thyroid isthmus measures 3 mm in thickness. IMPRESSION: Unchanged subcentimeter right thyroid nodule. Status post left hemithyroidectomy. No ultrasound abnormality is seen inthe left thyroid bed. -------- FINAL REPORT -------- Dictated By: Hamida Kennedy Dictated Date: 10/25/2024 12:02 ET Assigned Physician: Hamida Kennedy Reviewed and Electronically Signed By: Hamida Kennedy Signed Date: 10/25/2024 12:04 ET Workstation ID: [id number] Transcribed By: Self Edit Transcribed Date: 10/25/2024 12:02 ET Joesph Dinh MD [facility] US PROCEDURES Final Result * Colonoscopy (03/03/2021) [facility] Colonoscopy no interpretation , abstracted Anatomical Region Laterality Modality Other Historical Provider HEALTH MAINTENANCE Final Result * Cervical Cancer Screening: HPV (09/09/2016) [facility] Cervical Cancer Screening: HPV negative, abstracted Historical Provider HEALTH MAINTENANCE Final Result from Last 3 Months or Most Recently Relevant to Health Maintenance Insurance [employer] Care Teams Binding Printer Relationship Specialty Start Date End Date Nakul Golden MD [address] [place] [id number] PCP - General Internal Medicine 02/11/21
--- OUTSIDE RECORDS SUMMARY | 2024-11-13 07:11 | XMS_ITS | Encounter Summary ---
Author Organization [facility] Address [address] [place] [phone] Phone Care Team Providers Care Pesticide Chemist Name Role Phone BessiedanielMarialuisa Collinsdavid Be DO Primary Car e Provider Nakul Golden MD Primary Care Provider + Encounter Details Date Type Department Care Team (Latest Contact Info) Description 07/23/2019 Transcribe Orders [facility] [address] [place] [address] Faustino Richards, CAROLE [address] [facility] Obstetric[place] [address] [email or web address] Supervision of high-risk of young multigravida (Primary Dx) Social History Tobacco Use Types Packs/Day Years Used Date Smoking Tobacco: Never Smokeless Tobacco: Never Alcohol Use Standard Drinks/Week Comments Never 0 (1 standard drink = 0.6 oz pur e alcohol) Comments Yes Sex and Gender Information Value Date Recorded Sex Assigned at Female 07/10/2019 9:24 AM EDT Legal Sex Female 2:42 PM EDT Gender Identity Female 07/10/2019 9:24 AM EDT Sexual Orientation Straight 07/10/2019 9: 24 AM EDT Occupation Industry Job Start Date Job End Date Working from home Not on file Not on file Not on marjorie e documented as of this encounter Plan of Treatment Not on file documented as of this encounter Visit Diagnoses Diagnosis Supervision of high-risk of young multigravida- Primary documented in this encounter Care Teams Pesticide Chemist Relationship Specialty Start Date End Date Stefain Crystal DO [address] [place] [id number] PCP - General Internal Medicine 03/24/17 11/28/23 Nakul Golden MD [address] [place] [address] [phone] PCP - General 11/29/23 documented as of this encounter Additional Source Comments The information contained in this document represents components of the legal health record. It is not the complete legal health record.[facility]
--- NOTE | 2024-11-13 07:16 | MHC.OFFVIS ---
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 Allergies metoclopramide (From Reglan) Adverse Reaction (Verified 07/12/24 09:11) Nausea PFSH Medical History (Updated 09/05/24 @ 22:37 by Blanca Eaton MD) PTSD (post-traumatic stress disorder) Hyperthyroidism Bulimia nervosa Sacroiliitis Spondylosis of lumbar spine Tear of MCL (medial collateral ligament) of knee Depression Anxiety Surgical History (Updated 08/24/24 @ 10:00 by Marguerite Hernandez RN) H/O knee surgery H/O knee surgery H/O partial thyroidectomy History of hysterectomy Tubal ligation status Social History Household Members: Children Alcohol intake: current Alcohol intake frequency: a few times a month Patient Tobacco Use Status: Never used Tobacco Physical Exam Vital Signs: Last Vital Signs Pulse 58 11/13/24 07:45 Resp 18 11/13/24 07:45 BP 104/68 11/13/24 07:45 Pulse Ox 97 11/13/24 07:17 Oxygen Delivery Method Room Air 11/13/24 07:17 BMI result Body Mass Index 25.8 Assessment & Plan Assessment & Plan (1) Sacroiliitis: Code(s): M46.1 - Sacroiliitis, not elsewhere classified Category: Medical (2) Sacroiliac joint dysfunction of right side: Code(s): M53.3 - Sacrococcygeal disorders, not elsewhere classified Category: Medical Plan Right therapeutic sacroiliac joint injection Informed consent was explained thoroughly to the patient.? All questions about benefits and risks for the procedure were answered. Patient came to the operating room she was positioned prone on the operating table with the pillow under her abdomen.? Time-out was performed delineating correct site and side of the procedure name and date of of the patient. Her lower back and buttocks was prepped with ChloraPrep prepped and draped with sterile towels.C-arm was brought over the operating field and sq picture of patient's pelvis was demonstrated on the screen.? For the right joint tilting C-arm contralateral to the site of the joint of the patient the most posterior portion of the joints were superimposed of the anterior portion of the joint . Skin was injected in the projection of the joint slightly medial to the location of the joint with 25 gauge 1/2 inch needle using local lidocaine 2% mixed with ropivacaine 0.5% 1 to 1 . After that 22 gauge 3 and 1/2 inch needle was driven to the right joint in tunnel vision fashion.? When needle entered the joint capsule injection of the contrast was performed demonstrating intra-articular spread of the contrast.? After that of ropivacaine o.5 % 5 mls mixed with Kenalog 40 mg was injected into the joint.? Upon completion of the injections the needle was removed.? Sterile dressing was applied. Orders: Orders FL guidance in treatment room Today M53.3 - Sacrococcygeal disorders, not elsewhere classified Coding Level of Care Code Procedure Only Diagnoses Sacroiliitis M46.1 Sacroiliac joint dysfunction of right side M53.3
[2024-11-13 07:17] VITALS: BP 108/64; PULSE 65; RESP 18; O2SAT 97; BMI 25.8
[2024-11-13 07:45] VITALS: BP 104/68; PULSE 58; RESP 18
== END 2024-11-13 08:11 | disposition home or self-care (01) ==
PROVIDERS: PCP Internal Medicine; Visit Provider Anesthesiology
DX: M46.1 Sacroiliitis, not elsewhere classified (principal); M53.3 Sacrococcygeal disorders, not elsewhere classified
CPT/HCPCS: 27096

== ENCOUNTER 2024-11-13 07:19 | Outpatient (REF) | payer OTHER, MEDICAID, SELFPAY ==
--- NOTE | ~2024-11-13 | FL_ITS ---
EXAMINATION: FL GUIDANCE ONLY HISTORY: M53.3 - Sacrococcygeal disorders, not elsewhere classified COMPARISON: None available. TECHNIQUE: Fluoroscopy time: 7.8 seconds. Cumulative Dose: 1.4166 mGy. DAP: 0.3578 mGym2 Images: 2. FINDINGS: Fluoroscopic spot films of the right hemipelvis demonstrate a needle and contrast material in the region of the right sacroiliac joint. FL/FL guidance in treatment room IMPRESSION: Fluoroscopy during procedure. Please see procedure report for additional information. Electronically signed by: Kush Christine MD 11/13/2024 08:42 AM EDT
== END 2024-11-13 07:20 | disposition home or self-care (01) ==
LOC: CF 07:19
PROVIDERS: Visit Provider Anesthesiology
DX: M46.1 Sacroiliitis, not elsewhere classified (principal); M53.3 Sacrococcygeal disorders, not elsewhere classified
CPT/HCPCS: 27096; J2003; J2795; J3301; Q9967

== ENCOUNTER 2024-12-13 09:07 | Outpatient (AMB) | payer OTHER, MEDICAID, SELFPAY ==
--- NOTE | 2024-12-13 09:15 | A.OFFVIS_ITS ---
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 Wasserman is in my office after therapeutic sacroiliac joint injection. We discussed today her level of pain after the injection. She reported that for the past month after the procedure she had almost no pain at all in her most painful area on the right lower back. She now feels that the pain is starting to come back she is interested in some permanent solution of sacroiliac joint problem and not continuation of the steroid injections. I gave the patient sacroiliac joint belt. I will see if this sacroiliac joint belt will be helpful for her pain. I will see her in 1 month and if no results from SI joint belt wearing I will schedule her for sacroiliac joint fusion on the right. She reported that in the past she received sacroiliac joint injection on the right with very good results. 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 I consulted this MRI with neurosurgeon and he did not find any pathology which would indicate radiculopathy on the right. I offered the patient to repeat right sacroiliac joint injection, she stated that in the past she had 80% pain relief 6 months after the procedure. She has history of 3 pregnancies with vaginal deliveries. She had physical therapy 8 weeks with home exercise program she reported no help for her pain.? She tried NSAIDs to help her pain which were helpful only minimally info short period of time. [facility] Medical History (Updated 09/05/24 @ 22:37 by Blanca Eaton MD) PTSD (post-traumatic stress disorder) Hyperthyroidism Bulimia nervosa Sacroiliitis Spondylosis of lumbar spine Tear of MCL (medial collateral ligament) of knee Depression Anxiety Surgical History (Updated 08/24/24 @ 10:00 by Marguerite Hernandez RN) H/O knee surgery H/O knee surgery H/O partial thyroidectomy History of hysterectomy Tubal ligation status Social History Household Members: Children Alcohol intake: current Alcohol intake frequency: a few times a month Patient Tobacco Use Status: Never used Tobacco Review of Systems Const All systems reviewed & are unremarkable except as noted in HPI and below ENT Reports Normal hearing present Neuro Reports Normal hearing present, Denies Abnormal speech present and Denies Sensory deficit (Neuro) Physical Exam Vital Signs: Last Vital Signs Pulse 72 12/13/24 09:16 Resp 18 12/13/24 09:16 BP 119/74 12/13/24 09:16 Pulse Ox 100 12/13/24 09:16 Oxygen Delivery Method Room Air 12/13/24 09:16 BMI result Body Mass Index 25.1 Const General: cooperative, healthy appearing, comfortable, well developed, alert and awake Nutritional Appearance: average body habitus and well nourished Orientation/consciousness: patient oriented x3 Limitations: no limitations Chest Chest palpation & inspection: normal inspection of the chest Resp Effort & Inspection: normal respiratory effort, able to speak in complete sentences, no audible wheezes, no cough, respiratory effort not decreased, no grunting and not labored GI Inspection: Yes normal to inspection Back/Spine/Pelvis Other: Tenderness of palpation paraspinal spinal region of lumbar spine. Most tenderness points are in the projection of T12-L1 spinous processes as well as L4-5 S1 spinous processes. Flexing forward and flexing backwards aggravate her pain patient . Farhan test is positive on the right, pelvic compression test is positive on the right, Yeomann test is positive on the right, pelvic di straction test is positive on the right, tenderness on palpation in projection of the right sacroiliac joint. Neuro General: patient oriented x3 Cranial nerves: Yes Normal hearing present Speech: No Abnormal speech present Sensory Exam: No Sensory deficit (Neuro) Assessment & Plan Assessment & Plan (1) Sacroiliitis: Code(s): M46.1 - Sacroiliitis, not elsewhere classified Category: Medical (2) Spondylosis of lumbar spine: Code(s): M47.816 - Spondylosis without myelopathy or radiculopathy, lumbar region Category: Medical (3) Sacroiliac joint dysfunction of right side: Code(s): M53.3 - Sacrococcygeal disorders, not elsewhere classified Category: Medical Plan MRI is positive for conjoined right L4 and L5 sitting in 1 foraminal orifice. Otherwise MRI is unremarkable and normal I discussed the case with our neurosurgery Dr. Garcia who stated that after examination of the MRI he did not see anything indicative of possible radiculopathy. The patient again is in my office complaining on severe pain in the right side with radiation into the right hip. The physical exam is as above. Good results again from sacroiliac joint injection on the right. I offered patient today sacroiliac joint belt. I will see her in 1 month to assess the results of the sacroiliac joint belt. History of prolonged and intensive physical therapy with minimal help. I will see this patient in 1 month to assess the results of the sacroiliac joint belt. I will send her for CT scan of the pelvis to support the diagnosis of the sacroiliitis. It also needed to rule out the red flags of conditions in the pelvis. If the sacroiliac joint belt will not be effective I will schedule her for the sacroiliac joint fusion. Orders: Orders CT pelvis wo IV con Today M46.1 - Sacroiliitis, not elsewhere classified, M53.3 - Sacrococcygeal disorders, not elsewhere classified Patient Instructions: I here by testify that I spent 34 minutes in conversation with this patient as well as planning her care evaluating her prior records and prior diagnostic studies making appropriate orders and organizing this note. Coding Level of Care Code Est Pt Level 4 (97299) Diagnoses Sacroiliitis M46.1 Spondylosis of lumbar spine M47.816 Sacroiliac joint dysfunction of right side M53.3
[2024-12-13 09:16] VITALS: BP 119/74; PULSE 72; RESP 18; O2SAT 100; BMI 25.1
--- OUTSIDE RECORDS SUMMARY | 2024-12-13 10:34 | XMS_ITS | Encounter Summary ---
Author Organization [facility] Address [address] [place] [phone] Phone Care Team Providers Care Flatbed Owner Operator Name Role Phone Stefani Crystal DO Primary Car e Provider Nakul Golden MD Primary Care Provider + Encounter Details Date Type Department Care Team (Late st Contact Info) Description 02/08/2020 Procedure Pass [facility] [address] [place] [address] Social History Tobacco Use Types Packs/Day Years Used Date Smoking Tobacco: Never Smokeless Tobacco: Never Alcohol Use Standard Drinks/Week Comments Never 0 (1 standard drink = 0.6 oz pur e alcohol) Comments No Sex and Gender Information Value Date Recorded [...] documented as of this encounter Visit Diagnoses Not on filedocumented in this encounter Care Teams Flatbed Owner Operator Relationship Specialty Start Date End Date Stefani Crystal DO [address] [place] [address] PCP - General Internal Medicine 12/28/17 9/2/24 Nakul Golden MD [address] [place] [id number] PCP - General 11/29/23 documented as of this encounter Additional Source Comments The information contained in this document represents components of the legal health record. It is not the complete legal health record.[facility]
--- OUTSIDE RECORDS SUMMARY | 2024-12-13 10:34 | XMS_ITS | Clinical Summary ---
Author Organization [facility] Address [address] [employer] [facility] [address] [place] [phone] Phone Care Team Providers Care Financial Reporting Consultant Name Role Phone Nakul Golden MD Primary Care Provider + Allergies Active Allergy Reactions Criticality Noted Date Comments Metoclopramide Headaches High 09/13/2019 Metoclopramide Hcl Headaches 07/06/2022 Tramadol Swelling 07/06/2022 Medications clonazePAM (KLONOPIN) 1 MG tablet 0 Active prazosin (MINIPRESS) 2 MG capsule 1 Active venlafaxine (EFFEXOR-XR) 150 MG 24 hr capsule Take 150 mg by mouth every morning. 3 Active valACYclovir (VALTREX) 500 MG tabletIndications:H erpes simplex vulvovaginitis Take 1 tablet (500 mg total) by mouth daily. 90 tablet 3 4 Active topiramate (TOPAMAX) 50 MG tablet take 1 tablet by mouth everyday at bedtime 4 Active NURTEC ODT 75 mg tablet TAKE 1 TABLET BY MOUTH ONCE NEEDED FOR MIGRAINE HEADACHE Active SUMAtriptan (IMITREX) 25 MG tablet MAY REPEAT DOSE ONCE AFTER 2 HOURS, IF NEEDED. 4 Active baclofen (LIORESAL) 10 MG tablet Take 10 mg by mouth 3 (three) times a day. 4 Active levothyroxine (SYNTHROID, LEVOTHROID) 100 MCG tablet Take 1 tablet by mouth every morning. 4 Active prazosin (MINIPRESS) 1 MG capsule 4 Active acetaminophen (TYLENOL) 325 mg tablet Take 2 tablets (650 mg total) by mouth every 6 (six) hours as needed. 4 Active ibuprofen (ADVIL,MOTRIN) 200 MG tablet Take 3 tablets (600 mg total) by mouth every 6 (six) hours as needed for pain (specific location in comments). 4 Active ondansetron (ZOFRAN-ODT) 4 MG disintegrating tabletIndications:N ausea Take 1 tablet (4 mg total) by mouth every 8 (eight) hours as needed for nausea. 20 tablet 4 Active amitriptyline (ELAVIL) 10 MG tablet Take 10 mg by mouth nightly at bedtime. 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 Assessment & Plan (05/18/2017 10:34 AM EST): Will refer to PT given lack of response to heat and NSAIDs. Anxiety 03/27/2017 Overview (03/27/2017): Patient started on Prozac in hospital. Has had several issues with panic/claustrophobia while post-. Will plan to DC to home on prozac. Encouraged psychiatric care post-. Patient has seen social work. Assessment & Plan (07/30/2019 12:41 PM EDT): We discussed Digna's hx of anxiety and her anxiety specifically related to her experiences of traumatic/difficult labor and delivery and csection. She is not seeing a therapist now; I encouraged her to consider. Refusal of blood transfusion s as patient is Evangelical 03/27/2017 Overview (03/27/2017): Patient confirms no blood products are acceptable. Refusal form signed in hospital. Assessment & Plan (03/27/2017 5:43 PM EST): HCT and VSS are stable. Genital herpes 03/24/2017 Overview (07/12/2019): History of genital herpes Assessment & Plan (03/27/2017 5:35 PM EST): Continue Valtrex 500 mg QD now that delivered for routine non-OB prophylaxis. Resolved Problems Problem Noted Date Diagnosed Date Resolved Date Menorrhagia with regular cycle 10/27/2023 11/29/2023 Normal , unspecified trimester 02/08/2020 03/20/2020 Vomiting 12/28/2019 03/20/2020 Hyperemesis 09/14/2019 03/20/2020 Nausea/vomiting in 09/10/2019 03/20/2020 Overview (12/29/2019): Onset in first trimester, worsening in second trimester. Tried Vit B6/Unisom x 2-3 weeks, not helpful. Behavioral/dietary changes not helpful 09/10/19 restarted Vit B6/unisom, started Reglan PRN 09/12 - admitted for IV , will try zofran 12/28 - admitted for IV hydration and antiemetics Assessment & Plan (09/10/2019 1:28 PM EDT): States she hasn't had much to eat over the past few days, vomited five times yesterday. Feels very dehydrated, c/o cotton mouth. No ketones on urine dip, urine light yellow and clear. Discussed dietary and behavioral changes to improve nausea, as well as pharmacologic mgmt. Plan to restart Vit B6 and Unisom and add in Reglan PRN. May switch PRN to Zofran if not helpful. Pt encouraged to try ice pops and ice chips, small sips Asymptomatic bacteriuria during 08/13/2019 03/20/2020 Overview (09/13/2019): ASB on first trimester culture; treated with Macrobid 08/13/19 Repeat culture sent 09/12 Assessment & Plan (09/10/2019 1:23 PM EDT): Patient completed treatment, needs CRUZ. Unable to void today. Will go to lab in the next 1-2 weeks. Rubella non-immune status, antepartum 07/26/2019 03/20/2020 Assessment & Plan (07/30/2019 12:39 PM EDT): Reviewed status and need for vaccination pp; discussed avoiding exposure during . History of depression 07/13/2019 03/20/2020 Overview (07/13/2019): After second - therapy and benzos helped D/c'd benzos when found out she was History of delivery 07/13/2019 03/20/2020 Overview (07/13/2019): First for intolerance Second for hypotension, tachycardia, and suspected uterine rupture Has anxiety about CS deliveries, mostly because both were emergent. Would like Dr. Barksdale this time; wants option of going outside PP if possible. Uterine rupture during labor 07/13/2019 03/20/2020 Overview (10/16/2019): In second , during TOLAC Maternal hypotension, tachycardia Per op note: Uterine serosa with an ecchymotic appearance at the level of the prior incision. Moderate amt blood in endometrial cavity Plan for delivery at 37 weeks per UpToDate Assessment & Plan (12/25/2019 12:36 PM EDT): Plan on at 37 weeks. It is already booked. She would also like a tubal. Will add to case request. Assessment & Plan (07/30/2019 12:43 PM EDT): Digna expresses anxiety at thought of another csection and was not aware of note indicating uterine rupture. We briefly discussed this and she agrees to continue addressing concerns/anxiety as progresses. We discussed possible benefits of therapeutic support to help with this as well. Supervision of high-risk pre gnancy of young multigravida 07/13/2019 03/20/2020 Overview (12/29/2019): OB-CMI score 1 Group PN care? * Rh pos GC/Chlam neg Tdap * Flu * Hgb 10.3 GTT 75 GBS * PPBC * screening - NT testing Assessment & Plan (12/25/2019 12:35 PM EDT): She notes good movement. She denies any vaginal bleeding, LOF or regular contractions. Flu vax and Tdap today. EPDS of 8 but states that overall she is feeling well and just has some anxiety about the repeat . Assessment & Plan (09/10/2019 1:30 PM EDT): Having a difficult time with nausea, which seems to be steadily worsening. 4 lb weight loss for . Visit today focused on remedies, see problem list. Declines AFP. Plan for anatomy scan and visit in 4-5 weeks Left knee pain 11/09/2017 07/12/2019 IUD (intrauterine device) in place 05/18/2017 07/12/2019 Overview (10/11/2018): Mirena IUD inserted 05/18/2017 by TK Removed 10/11/2018 due to persistent RLQ pelvic pain Assessment & Plan (10/11/2018 11:47 AM EDT): IUD removed today. Will start of nuvaring. If patient doesn't tolerate nuvaring, she has used Maureen in past without any issues; so could consider Kyleena. History of delivery affecting 03/24/2017 03/28/2017 Overview (03/24/2017): Patient presented in labor for TOLAC. care at [facility]. Prior C/S was for FTP at 7-8 cm and face presentation. Assessment & Plan (03/27/2017 5:36 PM EST): Patient required emergent RCS due to maternal hypotension and tachycardia suspicious for uterine rupture. Currently doing well. No operative complications. Encounter for trial of labor 03/24/2017 03/26/2017 Overview (03/24/2017): Patient presented in labor for TOLAC. care at [facility]. Prior C/S was for FTP at 7-8 cm and face presentation. Assessment & Plan (03/25/2017 5:58 PM EST): RCS required Elevated blood pressure affe cting in third trimester, antepartum 03/24/2017 7 Overview (03/24/2017): SBP 150. Normal since. No other signs or sxs of preeclampsia. Normal labs. Will follow. Assessment & Plan (03/24/2017 8:05 AM EST): Currently normotensive. Acute bacterial sinusitis 03/24/2017 Overview (03/24/2017): Patient has been on Augmentin XR BID for sinus infection. Will continue while hospitalized. Assessment & Plan (03/26/2017 1:12 PM EST): Course completed. Will stop augmenting today. Patient is asymptomatic. Herpes simplex virus infection 07/12/2019 Immunizations Immunization Administration Dates Next Due COVID-19 (Pre-01/17) Moderna Vaccine, mRNA, PF 05/30/2020,05/02/2020 DTP 11/05/1996, 4,04/16/1992,02/12,1991 HPV,quadrivalent 11/22/2008,10/31/2007, 7 Hepatitis B 04/27/1992,1991,1991 Hib,PRP-T 01/06/1993, 3,02/14/1992,12/11 INFLUENZA, SPLIT VIRUS, TRIV ALENT W/ PRESERVATIVE IM 01/12/2017,03/03/2015,04/03/2014,12/26,12/25/2008,03/07/2008 IPV 04/20/1993,02/13/1992,1991 Influenza Quadrivalent MDCK Preservative Free IM 04/15/2022 Influenza Quadrivalent Prese rvative Free IM 12/31/2022,02/24/2021,12/25/2019 Influenza quadrivalent nasal 11/25/2009 Influenza, Unspecified Formulation 01/09/2019, MMR 02/09/2020,11/02/1995,01/06/1993 Meningococcal MCV4P 11/28/2013,11/01/2006 Polio - OPV 11/05/1996 Td (adult),2 Lf Tetanus Toxo id, PF, Adsorbed 01/23/2000 Tdap 12/25/2019, 7,01/12/2017,12/26,10/31/2007 Varicella 10/31/2007,11/02/1995 Family History Medical History Relation Comments Diabetes Unspecified Infl. arthritis Unspecified Relation Status Comments Brother Father Maternal Aunt Maternal Grandfather Maternal Grandmother Maternal Uncle Mother Paternal Aunt Paternal Grandfather Paternal Grandmother Paternal Uncle Sister Unspecified Social History Tobacco Use Types Packs/Day Years Used Date Smoking Tobacco: Never Smokeless Tobacco: Never Tobacco Cessation:Counseling Given: Not Answered Alcohol Use Standard Drinks/Week Comments Yes 0 (1 standard drink = 0.6 oz pur e alcohol) special occasions rare Education Answer Date Recorded Are you interested in more education? Not on marjorie e 07/23/2022 Are you concerned about learning? Not on file 07/23/2022 No 07/23/2022 No 07/23/2022 Digital Access Answer Date Recorded No 08/21/2022 No 08/21/2022 Reliable internet access at home? Not on file 08/21/2022 Device with a working camera? Not on file Comments No Sex and Gender Information Value Date Recorded Sex Assigned at Female 07/10/2019 9:24 AM EDT Legal Sex Female 2:42 PM EDT Gender Identity Female 07/10/2019 9:24 AM EDT Sexual Orientation Straight 07/10/2019 9: 24 AM EDT Occupation Industry Job Start Date Job End Date Working from home Not on file Not on file Not on marjorie e Last Filed Vital Signs Vital Sign Reading Time Taken Comments Blood Pressure 110/76 05/29/2024 9:09 AM EST Pulse 56 10/27/2023 6:31 PM EDT Temperature 36.4 C (97.5 F) 10/27/2023 6:31 PM EDT Respiratory Rate 16 10/27/2023 6:31 PM EDT Oxygen Saturation 98% 10/27/2023 6:31 PM EDT Inhaled Oxygen Concentration - - Weight 78 kg (172 lb) 05/29/2024 9:09 AM EST Height 167.6 cm (5' 6 ) 05/29/2024 9:09 AM EST Body Mass Index 27.76 05/29/2024 9:09 AM EST Plan of Treatment Health Maintenance Due Date Last Done Comments TSH LEVEL 1991 DEPRESSION SCREENING 2003 PAP SMEAR 08/10/2024 08/11/2023, 06/26, 07/30/2019, Additional history exists INFLUENZA VACCINE (#1) 2024 , 12/31/2022, 04/15/2022, Additional history exists COVID-19 VACCINE (2024- season) 2024 05/08/2021, 05/30/2020, 05/02/2020 Adult Td,Tdap Booster 12/24/2029 12/25/2019 , 02/09/2017, 01/12/2017, Additional history exists HIB VACCINES Completed 01/06/1993, 03/29, 02/14/1992, Additional history exists MENINGOCOCCAL VACCINES (ACWY) Aged Out 11/28/2013, 11/01/2006 No longer eligibl e based on patient's age to complete this topic HEPATITIS C SCREENING Completed 07/06/2022 , 07/29/2020, 07/23/2019 HIV ONE-TIME SCREENING (18-65 YEARS) Completed 07/06/2022 SMOKING STATUS SCREENING (Once After 26 Yrs) Completed 11/29/2023 HEPATITIS A VACCINES Aged Out No long er eligible based on patient's age to complete this topic MENINGOCOCCAL VACCINES (B) Aged Out N o longer eligible based on patient's age to complete this topic PNEUMOCOCCAL VACCINES (0-49 years) Aged Out No longer eligible based on patient's age to complete this topic Medical Devices Not on file Procedures Procedure Name Priority Date/Time Associated Diagnosis Comments PAP TEST Routine 08/11/2023 12:00 AM EDT HEPATITIS C ANTIBODY, QUALITATIVE Routine 07/06/2022 10:41 AM EDT Routine screening for STI (sexually transmitted infection) from Last 3 Months or Most Recently Relevant to Health Maintenance Results * (ABNORMAL) Pap Test (08/11/2023 12:00 AM EDT) 08/11/2023 08/12/2023 9:1 7 AM EDT Narrative SEE NARRATIVE - 08/17/2023 4:00 [place] [address] Custom Grinder: Zahra Beltran MD [facility] Cytology Report FINAL DIAGNOSIS A. PAP SMEAR (THIN PREP) CE: SPECIMEN ADEQUACY: Satisfactory for evaluation; transformation zone present. INTERPRETATION: EPITHELIAL CELL ABNORMALITY - SQUAMOUS. Atypical squamous cells of undetermined significance. Coccobacilli consistent with shift in zackery This specimen was analyzed by the automated ThinPrep Imaging System ([employer].) and manually rescreened by a college or university business manager and/or pathologist. Electronically Signed Out By: MD Natali Pollack CT(ASCP) By his/her signature above, the pathologist listed as making the Final Diagnosis certifies that he/she has personally reviewed this case and confirmed or corrected the diagnosis. The Pap test is a screening test primarily for squamous cancers and precursors and has associated false-negative and false-positive results. New technologies such as liquid-based preparations may decrease but will not eliminate all false-negative results. Regular sampling and follow-up of unexplained clinical signs and symptoms are recommended to minimize false negative results. PROCEDURES/ADDENDA HPV Testing (Requested) Ordered Date: 08/12/2023 A. PAP SMEAR (THIN PREP) CE: Human Papilloma Virus TEST POSITIVE for high-risk Human Papilloma Virus type Other high risk (non-type 16, 18, or 45) probe set (Includes 31, 33, 35, 39, 51, 52, 56, 58, 59, 66, 68) Note: Additional testing was necessary to identify the most virulent high-risk strains. Negative for high-risk Human Papilloma Virus types 16, 18 and 45. Testing performed by Telly HR-HPV analysis. Clinical correlation is advised. This HPV test was performed at [facility], [address] [place] [address]. This test has been FDA approved for both SurePath and ThinPrep cervical cytology specimens. The accuracy and precision of this test for all other specimen sources has been verified in the Cytopathology Laboratory of the [facility] and has not been cleared or approved by the U.S. Food and Drug Administration. Clinical correlation is advised. CLINICAL HISTORY Date of Last Menstrual Period: 07-20-2023 Infection History: HPV: OTHER HIGH RISK, 2022 Other Clinical Conditions: Screening Pap SPECIMEN SOURCE A: PAP SMEAR (THIN PREP) CE Patient Name: DIGNA CARRION : 1990 (Age: 32) Sex: F Institution: [facility] Location: [facility] Date of Collection: 08/11/2023 Date of Reported: 08/17/2023 16:00 Results to: Gideon Barksdale MD Gideon Barksdale MD CYTOLOGY ORDERABLES Final Result SEE NARRATIVE * Hepatitis C antibody, qualitative (07/06/2022 10:41 AM EDT) HCV NON-REACTIV E NON-REACTI VE [facility] Blood 07/06/2022 10:4 1 AM EDT 07/06/2022 10:44 AM EDT Gideon Barksdale MD LAB BLOOD ORDERABLES Final Resul t [address] [id number] from Last 3 Months or Most Recently Relevant to Health Maintenance Insurance [facility] HPI [facility] TIERED HMO [employer] NET PARTIAL [facility] TIERED HMO [employer] NET PARTIAL SAFETY NET PARTIAL [facility] PARTIAL [facility] TIERED HMO HEALTH SAFETY NET PARTIAL [facility] SAFETY NET PARTIAL [facility] TIERED HMO HEALTH SAFETY NET PARTIAL TIERED HMO [employer] NET PARTIAL [place] [address] TIERED HMO [employer]AF[employer] NET PARTIAL Advance Directives For more information, please contact: [phone] (9AM - 5PM Monik/New_Echo, Tuesday-Tuesday) Documents on File Type Date Recorded Patient Assistant Designer Expl anation Healthcare Proxy 02/11/2020 12:12 PM * Full Code (Latest Code Status on File) Date Activated Date Inactivated Comments 02/08/2020 9:25 AM Question Answer Comments Code Status Confirmed With: Patient * Full Code Date Activated Date Inactivated Comments 02/08/2020 5:49 AM 02/08/2020 9:25 AM Question Answer Comments Code Status Confirmed With: Patient * Full Code Date Activated Date Inactivated Comments 12/28/2019 12:48 AM 02/08/2020 5:39 AM Question Answer Comments Code Status Confirmed With: Patient * Full Code (Presumed) Date Activated Date Inactivated Comments 09/13/2019 3:11 PM 12/28/2019 12:00 AM * Full Code (Presumed) Date Activated Date Inactivated Comments 03/24/2017 7:55 PM 03/28/2017 3:40 PM Care Teams Financial Reporting Consultant Relationship Specialty Start Date End Date Nakul Golden MD [address] [place] [phone] PCP - General 11/29/23 Additional Source Comments The information contained in this document represents components of the legal health record. It is not the complete legal health record.[facility]
--- OUTSIDE RECORDS SUMMARY | 2024-12-13 10:34 | XMS_ITS | Encounter Summary ---
Author Organization [facility] Address [address] [place] [phone] Phone Care Team Providers Care System Specialist Name Role Phone Stefani Crystal DO Primary Car e Provider Nakul Golden MD Primary Care Provider + Encounter Details Date Type Department Care Team (Late st Contact Info) Description 10/27/2023 Procedure Pass OR Admitting Dept - Virtual Department [address] [place] [address] Social History Tobacco Use Types Packs/Day Years [...] on filedocumented in this encounter Care Teams System Specialist Relationship Specialty Start Date End Date Stefani Crystal DO [address] [place] [address] PCP - General Internal Medicine 03/24/17 11/28/23 Nakul Golden MD [address] [place] [address] PCP - General 11/29/23 documented as of this encounter Additional Source Comments The information contained in this document represents components of the legal health record. It is not the complete legal health record.[facility]
--- OUTSIDE RECORDS SUMMARY | 2024-12-13 10:34 | XMS_ITS | Patient Health Record ---
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) Active confirmed Problem Ulcerative colitis (35336852) Ulcerative colitis, unspecified with unspecified complications (K51.919) Active confirmed Plan Of Treatment Pending Test Test Name Order Date Aerobic Bacterial Culture 05/18/2016 ONE SWAB 05/18/2016 COMPLETE CBC WITH DIFF 05/18/2016 HSV 1 IGG 01/06/2016 Insurance Providers Payer Name Payer Address Payer Phone Subscriber Number Group Number Insured Name Patient Relationship to Insured Coverage Start Date Coverage End Date [facility] [address] [place] [address] [id number] [facility] Child - Insured has Financial Responsibility Medications Administered Medication Instructions Date of Administration Dosage Notes CEFTRIAXONE 05/18/2016 250 mg DRAWN UP WITH 0.9ML OF LIDOCAINE Medical (General) History Medical History History ICD Code Other specified abnormal uterine and vag inal bleeding N93.8 Surgical History Surgery Date(Month/Year) Left Knee Arthroscopy Hospitalization History Reason Date(Month/Year) 1 Vaginal Delivery
--- OUTSIDE RECORDS SUMMARY | 2024-12-13 10:34 | XMS_ITS | Encounter Summary ---
Author Organization [facility] Address [address] [place] [phone] Phone Care Team Providers Care Pharmacist Hospital Name Role Phone BessiedanielStefani [place] DO Primary Car e Provider Nakul Golden MD Primary Care Provider + Encounter Details Date Type Department Care Team (Latest Contact Info) Description 07/23/2019 Transcribe Orders [facility] [address] [place] [address] Faustino Richards, CAROLE [address] [facility] [place] [address] [email or web address] Supervision of high-risk of young multigravida [...] Primary documented in this encounter Care Teams Pharmacist Hospital Relationship Specialty Start Date End Date Stefani Crystal DO [address] [place] [phone] PCP - General Internal Medicine 03/24/17 11/28/23 Nakul Golden MD [address] [place] [address] [phone] PCP - General 11/29/23 documented as of this encounter Additional Source Comments The information contained in this document represents components of the legal health record. It is not the complete legal health record.[facility]
--- OUTSIDE RECORDS SUMMARY | 2024-12-13 10:34 | XMS_ITS | Encounter Summary ---
Author Organization [facility] Address [address] [place] [address] Care Team Providers Care Press Offbearer Name Role Phone Nakul Golden MD Primary Care Provider [phone] Reason for Referral * Consultation (Routine) - Closed Specialty Diagnoses / Procedures Referred By Contmargi t Referred To Contact Pain Medicine Diagnoses Sacroiliitis, not elsewhere classified (CMS/HCC V24) Nakul Golden MD [address] [place] [address] Phone: tel: fax: Javier Ndiaye [address] [place] [address] [place] [address] fax: Referral ID Status Reason Start Date Expiration Date V isits Requested Visits Authorized [id number] Closed Specialty Services Required 11/13/2024 11/12/2025 12 12 Reason for Visit * Reason Onset Date Comments Referral 11/13/2024 Pain Medicine In [facility] Referral Encounter Details Date Type Department Care Team (Late st Contact Info) Description 11/13/2024 Telephone Adult Medicine [address] [phone] Nakul Golden MD [address] [place] [address] Social History Tobacco Use Types Packs/Day Years Used Date Smoking Tobacco: Never Smokeless Tobacco: Never Alcohol Use Standard Drinks/Week Comments Yes 0 (1 standard drink = 0.6 oz pur e alcohol) Comments Unknown Sex and Gender Information Value Date Recorded Sex Assigned at Not on file Legal Sex Female 10:11 PM EST Gender Identity Not on file Sexual Orientation Not on file documented as of this encounter Progress Notes * Hafsa Oh - 11/13/2024 10:14 AM EDT What insurance does the patient have today? Payor: @[email or web address]/@[email or web address] Referrals cannot be processed if the insurance is not accurate. If the insurance listed above is NO BILLING INFORMATION FOUND FOR THIS ENCOUNTER then the patients correct insurance must be obtainedand registered in [facility] or their referral can not be processed. Name of person calling to request this referral? [place] [place] [facility] Referred To Provider (Include first and last name): Javier Ndiaye NPI (if known): [phone] Order/Specialty requested pain medicine Chief Complaint (Note: This is not a body part or a procedure): M46.1 Has the patient seen provider for this problem/Dx before? Referred To Provider Address: Referred To Provider Referred To Provider Does patient have an appointment scheduled?: yes If yes, what is the date of the appointment?: 12/13/24 Is this a retro request? no Number of visits requested: 12 Is this appointment related to: MVA or worker compensation? no documented in this encounter Plan of Treatment Scheduled Referrals Name Type Priority Associated Diagnoses Order Schedule Ambulatory referral to Pain Medicine Outpatient Referral Routine Sacroiliitis, not elsewhere classified (CMS/HCC V24) Expected: 11/19/2024, Expires: 11/13/2025 documented as of this encounter Visit Diagnoses Diagnosis Sacroiliitis, not elsewhere classified (CMS/HCC V24)- Primary Sacroiliitis, not elsewhere classified documented in this encounter Care Teams Press Offbearer Relationship Specialty Start Date End Date Nakul Golden MD [address] [place] [address] PCP - General Internal Medicine 02/11/21 documented as of this encounter
--- OUTSIDE RECORDS SUMMARY | 2024-12-13 10:34 | XMS_ITS | Encounter Summary ---
Author Organization [facility] Address [address] [place] [address] Phone Care Team Providers Care Computer Education Teacher Name Role Phone Stefani Crystal DO Primary Car e Provider Nakul Golden MD Primary Care Provider + Encounter Details Date Type Department Care Team (Late st Contact Info) Description 03/24/2017 Procedure Pass [facility] L[facility]D Procedures [address] [place] [address] Social History Tobacco Use Types Packs/Day Years Used Date Smoking Tobacco: Never Smokeless Tobacco: Never Alcohol Use Standard Drinks/Week Comments No 0 (1 standard drink = 0.6 oz pur e alcohol) Comments No Sex and Gender Information Value Date Recorded Sex Assigned at Female 07/10/2019 9:24 AM EDT Legal Sex Female 2:42 PM EDT Gender Identity Female 07/10/2019 9:24 AM EDT Sexual Orientation Straight 07/10/2019 9: 24 AM EDT documented as of this encounter Plan of Treatment Not on file documented as of this encounter Visit Diagnoses Not on filedocumented in this encounter Care Teams Computer Education Teacher Relationship Specialty Start Date End Date Stefani Crystal DO [address] [place] [address] PCP - General Internal Medicine 03/24/17 11/28/23 Nakul Golden MD [address] [place] [address] PCP - General 11/29/23 documented as of this encounter Additional Source Comments The information contained in this document represents components of the legal health record. It is not the complete legal health record.[facility]
--- OUTSIDE RECORDS SUMMARY | 2024-12-13 10:34 | XMS_ITS | Clinical Summary ---
Author Organization [address] Address [address] [place] [phone] Phone Care Team Providers Care Inspector Bicycle Name Role Phone Nakul Golden MD Primary Care Provider [phone] Allergies Active Allergy Reactions Criticality Noted Date [...] mouth. Active levothyroxine (SYNTHROID, LEVOTHROID) 100 mcg tabletIndications:Brown bclinical hyperthyroidism Take 1 tablet (100 mcg total) by mouth 1 (one) time each day. 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 (CMS/HCC V24) 01/18/2018 Panic disorder 12/15/2017 PTSD (post-traumatic stress disorder) 11/07/2017 Subclinical hyperthyroidism 05/10/2016 Ulcerative colitis (CMS/HCC V24, CMS/HCC V28) Encounters Date Type Department Care Team Description 11/13/2024 Telephone Adult Medicine [facility] - [address] [phone] Nakul Golden MD 10/25/2024 10:01 AM EDT - 10/25/2024 11:59 PM EDT Hospital Encounter Radiology Department - [address] [phone] Subclinical hyperthyroidism Discharge Disposition: Home or Self Care 10/18/2024 3:30 PM EDT Office Visit Endocrinology - [address] [phone] Joesph Dinh MD Subclinical hyperthyroidism (Primary Dx); Multinodular goiter from Last 3 Months Immunizations Name Administration [...] Surgery Date Site/Laterality Comments SECTION 12/26/2012 PROCEDURE: TX DELIVERY ONLY KNEE SURGERY 2010 PROCEDURE: HISTORICAL KNEE SURGERY; COMMENT: left patellofemoral repair KNEE ARTHROSCOPY 07/28/2021 Right PROCEDURE: TX ARTHROSCOPY AID TX SPINE&/FX KNEE W/O FIXJ; COMMENT: Right knee arthroscopic plica resection. Medial meniscus repair. Partial lateral meniscectomy with Dr. Guan Medical History Medical History Date Comments Ulcerative colitis, chronic ([facility], [facility] V28) DX:Ulcerative colitis, chron ic ([facility]) H/O colonoscopy 04/10/2015 DX:H/O colonosco py Refusal of blood transfusion s as patient is Congregation DX:Refusal of blood trans fusions as patient is Congregation Subclinical hyperthyroidism DX:S ubclinical hyperthyroidism History of colonoscopy 03/03/2021 DX:Histor y of colonoscopy; COMMENT: at [facility] by Dr. Sarmad Moreno - Normal [...] Cancer Screening: Pap Smear 09/10/2019 09/09/2016, 09/09/2016 Depression Screening 03/28/2024 COVID-19 Vaccine ( season) 2024 05/08/2021, 05/30/2020, 05/02/2020 Influenza Vaccine (#1) 2024 4, 12/31/2022, 04/15/2022, Additional history exists DTaP,Tdap,and Td Vaccines (11 - Td or Tdap) 12/24/2029 12/25/2019, 02/09/2017, 01/12/2017, Additional history exists Colorectal Cancer Screening: Colonoscopy 03/03/2031 03/03/2021 RSV Immunization Adult Patients (1 - 1-dose 75+ series) 09/25/2066 Hepatitis B Vaccines Completed 04/27/1992, 1991, 1991 HIB Vaccines Completed 01/06/1993, 03/29, 02/14/1992, Additional history exists IPV Vaccines Completed 11/05/1996, 03/29, 02/13/1992, Additional history exists Varicella Vaccines Completed 10/31/2007, 11/02/1995 HPV Vaccines Completed 11/22/2008, 07/2007, 11/01/2006 Meningococcal ACWY Vaccine Aged Out [...] Procedure Name Priority Date/Time Associated Diagnosis Comments US HEAD NECK SOFT TISSUE Routine 10/25/2024 10:21 [...] Signed Date: 10/25/2024 12:04 ET Workstation ID: [id number] Transcribed By: Self Edit Transcribed Date: 10/25/2024 [...] Signed Date: 10/25/2024 12:04 ET Workstation ID: [id number] Transcribed By: Self Edit Transcribed Date: 10/25/2024 12:02 ET Joesph Dinh MD IM US PROCEDURES Final Result * Colonoscopy (03/03/2021) Colonoscopy no interpretation , abstracted Anatomical Region Laterality Modality Other Historical Provider HEALTH MAINTENANCE Final Result * Cervical Cancer Screening: HPV (09/09/2016) Cervical Cancer Screening: HPV negative, abstracted Historical Provider HEALTH MAINTENANCE Final Result from Last 3 Months or Most Recently Relevant to Health Maintenance Insurance [employer] Care Teams Inspector Bicycle Relationship Specialty Start Date End Date Nakul Golden MD [address] [place] [phone] PCP - General Internal Medicine 02/11/21
== END 2024-12-13 09:44 | disposition home or self-care (01) ==
LOC: HO.PMC 09:07
PROVIDERS: PCP Internal Medicine; Visit Provider Anesthesiology
DX: M46.1 Sacroiliitis, not elsewhere classified (principal); M47.816 Spondylosis without myelopathy or radiculopathy, lumbar region; M53.3 Sacrococcygeal disorders, not elsewhere classified
CPT/HCPCS: 99214

== ENCOUNTER 2025-01-10 10:19 | Outpatient (AMB) | payer OTHER, MEDICAID, SELFPAY ==
--- NOTE | 2025-01-10 10:21 | MHC.OFFVIS ---
Vital Signs 01/10/25 10:22 Height 5 ft 7 in Weight 159 lb BMI 24.9 BP 124/60 Blood Pressure Location Lt brachial Position Sitting Respiration 16 Pulse 76 Pulse Source Pulse Oximeter Pulse Oximetry (%) 100 Oxygen Delivery Method Room Air Intake Visit Reasons: 1 MONTH FOLLOW UP Flame Cutting Supervisor Required: No Accompanied by: Self / Same As Patient Allergies metoclopramide (From Reglan) Adverse Reaction (Verified 01/10/25 10:25) Nausea HPI Comments Details: Ms. Wasserman is in my office 2 months after therapeutic sacroiliac joint injection. She reports that her pain is starting to come back. We discussed Nevro sacroiliac joint fusion 1st on the right and after that on the left. She is scheduled for CT scan of the pelvis on 02/16/2025. I will see her after that on 02/20/2025. However if she will be able to schedule an appointment with CT scan earlier she will call the office and schedule appointment earlier so we can start working on her pre authorization for the procedure earlier. She reported that in the past she received sacroiliac joint injection on the right with very good results. However lately the SI joint injection effectiveness started to fade. She no longer enjoys 6 7 months of pain relief after SI joint injection. It at the best is 1 month only. 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 I consulted this MRI with neurosurgeon and he did not find any pathology which would indicate radiculopathy on the right. I offered the patient to repeat right sacroiliac joint injection, she stated that in the past she had 80% pain relief 6 months after the procedure. She has history of 3 pregnancies with vaginal deliveries. She had physical therapy 8 weeks with home exercise program she reported no help for her pain.? She tried NSAIDs to help her pain which were helpful only minimally info short period of time. [facility] Medical History (Updated 09/05/24 @ 22:37 by Blanca Eaton MD) PTSD (post-traumatic stress disorder) Hyperthyroidism Bulimia nervosa Sacroiliitis Spondylosis of lumbar spine Tear of MCL (medial collateral ligament) of knee Depression Anxiety Surgical History (Updated 08/24/24 @ 10:00 by Marguerite Hernandez RN) H/O knee surgery H/O knee surgery H/O partial thyroidectomy History of hysterectomy Tubal ligation status Social History Household Members: Children Alcohol intake: current Alcohol intake frequency: a few times a month Patient Tobacco Use Status: Never used Tobacco Review of Systems Const All systems reviewed & are unremarkable except as noted in HPI and below ENT Reports Normal hearing present Neuro Reports Normal hearing present, Denies Abnormal speech present and Denies Sensory deficit (Neuro) Physical Exam Vital Signs: Last Vital Signs Pulse 76 01/10/25 10:22 Resp 16 01/10/25 10:22 BP 124/60 01/10/25 10:22 Pulse Ox 100 01/10/25 10:22 Oxygen Delivery Method Room Air 01/10/25 10:22 BMI result Body Mass Index 24.9 Const General: cooperative, healthy appearing, comfortable, well developed, alert and awake Nutritional Appearance: average body habitus and well nourished Orientation/consciousness: patient oriented x3 Limitations: no limitations Chest Chest palpation & inspection: normal inspection of the chest Resp Effort & Inspection: normal respiratory effort, able to speak in complete sentences, no audible wheezes, no cough, respiratory effort not decreased, no grunting and not labored GI Inspection: Yes normal to inspection Back/Spine/Pelvis Other: Tenderness of palpation paraspinal spinal region of lumbar spine. Most tenderness points are in the projection of T12-L1 spinous processes as well as L4-5 S1 spinous processes. Flexing forward and flexing backwards aggravate her pain patient . Farhan test is positive on the right, pelvic compression test is positive bilaterally, Yeomann test is positive bilaterally, pelvic distraction test is positive bilaterally, tenderness on palpation in projection of the bilateral SI joints. Neuro General: patient oriented x3 Cranial nerves: Yes Normal hearing present Speech: No Abnormal speech present Sensory Exam: No Sensory deficit (Neuro) Assessment & Plan Assessment & Plan (1) Sacroiliitis: Code(s): M46.1 - Sacroiliitis, not elsewhere classified Category: Medical (2) Spondylosis of lumbar spine: Code(s): M47.816 - Spondylosis without myelopathy or radiculopathy, lumbar region Category: Medical (3) Sacroiliac joint dysfunction of right side: Code(s): M53.3 - Sacrococcygeal disorders, not elsewhere classified Category: Medical Plan MRI is positive for conjoined right L4 and L5 sitting in 1 foraminal orifice. Otherwise MRI is unremarkable and normal I discussed the case with our neurosurgery Dr. Garcia who stated that after examination of the MRI he did not see anything indicative of possible radiculopathy. The patient again is in my office complaining on severe pain in the right side with radiation into the right hip. The physical exam is as above. Good results again from sacroiliac joint injection on the right. However it soon started to fade ineffectiveness. SI joint belt was prescribed to the patient. The patient wires at every day during the daytime. She reports minimal help from SI joint belt. In the past she completed multiple sessions of physical therapy which were minimally effective to alleviate her pain. She continues to wear SI joint belt. The results are at the best equivocal. Her CT scan of bony pelvis is scheduled for 02/16/2025, I will see her on 02/20/2025. If she will manage to schedule appointment earlier I will see her earlier. After that we will start planning sacroiliac joint fusion.. We will perform right sacroiliac joint fusion 1st because it is most painful SI joint. SI joint fusion on the left we will follow in 3 weeks after that. Coding Level of Care Code Est Pt Level 3 (11506) Diagnoses Sacroiliitis M46.1 Spondylosis of lumbar spine M47.816 Sacroiliac joint dysfunction of right side M53.3
[2025-01-10 10:22] VITALS: BP 124/60; PULSE 76; RESP 16; O2SAT 100; BMI 24.9
--- OUTSIDE RECORDS SUMMARY | 2025-01-10 12:41 | XMS_ITS | Encounter Summary ---
Author Organization [facility] Address [address] [place] [address] Phone Care Team Providers Care Entry Level Java Developer Name Role Phone BessiedanielStefani Collins [place] DO Primary Car e Provider Nakul Golden MD Primary Care Provider + Encounter Details Date Type Department Care Team (Late st Contact Info) Description 10/27/2023 Procedure Pass OR Admitting Dept - Virtual Department [address] [place] [address] Social History Tobacco Use Types Packs/Day Years [...] on filedocumented in this encounter Care Teams Entry Level Java Developer Relationship Specialty Start Date End Date Stefani Crystal DO PCP - General Internal Medicine 03/24/17 11/28/23 Nakul Golden MD [address] [place] [id number] PCP - General 11/29/23 documented as of this encounter Additional Source Comments The information contained in this document represents components of the legal health record. It is not the complete legal health record.[facility]
--- OUTSIDE RECORDS SUMMARY | 2025-01-10 12:41 | XMS_ITS | Clinical Summary ---
Author Organization [facility] Address [address] [facility] [address] [place] [address] Phone Care Team Providers Care Brewmaster Name Role Phone Nakul Golden MD Primary [...] of blood transfusion s as patient is Restorationist 03/27/2017 Overview (03/27/2017): Patient confirms no blood [...] presented in labor for TOLAC. care at [facility]. Prior C/S was for FTP at 7-8 cm and face presentation. Assessment & Plan (03/27/2017 5:36 PM EST): Patient required emergent RCS due to maternal hypotension and tachycardia suspicious for uterine rupture. Currently doing well. No operative complications. Encounter for trial of labor 03/24/2017 03/26/2017 Overview (03/24/2017): Patient presented in labor for TOLAC. care at [facility]. Prior C/S was for FTP at 7-8 [...] Recently Relevant to Health Maintenance Results * Pap Test (08/11/2023 12:00 AM EDT) [place] [address] Basketball Coach: Zahra Beltran MD BUSINESS OFFICE SPECIALIST Cytology Report FINAL DIAGNOSIS A. PAP SMEAR (THIN PREP) CE: SPECIMEN ADEQUACY: Satisfactory for evaluation; transformation zone present. INTERPRETATION: EPITHELIAL CELL ABNORMALITY - SQUAMOUS. Atypical squamous cells of undetermined significance. Coccobacilli consistent with shift in zackery This specimen was analyzed by the automated ThinPrep Imaging System ([employer].) and manually rescreened by a sack sewer machine and/or pathologist. Electronically Signed Out By: MD [...] 16, 18 and 45. Testing performed by [employer] HR-HPV analysis. Clinical correlation is advised. This HPV test was performed at [facility], [address] [place] [address]. This test has been FDA approved for both SurePath and ThinPrep cervical cytology specimens. The accuracy and precision of this test for all other specimen sources has been verified in the Cytopathology Laboratory of the [facility] and has not been cleared or approved by the U.S. Food and Drug Administration. Clinical correlation is advised. CLINICAL HISTORY Date of Last Menstrual Period: 07-20-2023 Infection History: HPV: OTHER HIGH RISK, 2022 Other Clinical Conditions: Screening Pap SPECIMEN SOURCE A: PAP SMEAR (THIN PREP) CE Patient Name: DIGNA CARRION : 1990 (Age: 32) Sex: F Institution: [facility] Location: [facility] Date of Collection: 08/11/2023 Date of Reported: 08/17/2023 16:00 Results to: Gideon Barksdale MD [facility] Final Diagnosis A. PAP SMEAR (THIN PREP) CE: SPECIMEN ADEQUACY: Satisfactory for evaluation; transformation zone present. INTERPRETATION: EPITHELIAL CELL ABNORMALITY - SQUAMOUS. Atypical squamous cells of undetermined significance. Coccobacilli consistent with shift in zackery This specimen was analyzed by the automated ThinPrep Imaging System ([employer].) and manually rescreened by a sack sewer machine and/or pathologist. [facility] Results\Inte rpretation A. PAP SMEAR (THIN PREP) CE: Human Papilloma Virus TESTPOSITIVE for high-risk Human Papilloma Virus type Other high risk (non-type 16, 18, or 45) probe set (Includes 31, 33, 35, 39, 51, 52, 56, 58, 59, 66, 68) Note: Additional testing was necessary to identify the most virulent high-risk strains.Negative for high-risk Human Papilloma Virus types 16, 18 and 45.Testing performed by [employer] HR-HPV analysis. Clinical correlation is advised. This HPV test was performed at [facility], [address] [place] [address]. This test has been FDA approved for both SurePath and ThinPrep cervical cytology specimens. The accuracy and precision of this test for all other specimen sources has been verified in the Cytopathology Laboratory of the [facility] and has not been cleared or approved by the U.S. Food and Drug Administration. Clinical correlation is advised. [facility] Conversion Type 08/11/2023 9:17 AM EDT Gideon Barksdale MD CYTOLOGY ORDERABLES Edited Resul t - Final Performing Organization Address City/[facility]/ZIP Co de Phone Number [address] [phone] * Hepatitis C antibody, qualitative (07/06/2022 10:41 AM EDT) HCV NON-REACTIV E NON-REACTI VE [facility] Blood 07/06/2022 10:4 1 AM EDT 07/06/2022 10:44 AM EDT Gideon Barksdale MD LAB BLOOD ORDERABLES Final Resul t Performing Organization Address [facility]/ZIP Co de Phone Number [address] [phone] from Last 3 Months or Most Recently Relevant to Health Maintenance Insurance [facility] TIERED HMO HEALTH SAFETY NET [place] [address] [facility] TIERED HMO HEALTH SAFETY NET PARTIAL HEALTH SAFETY NET PARTIAL [facility] SAFETY NET PARTIAL [facility] HPI [facility] TIERED HMO NET PARTIAL Member Subscriber Plan / Payer (Ef fective 2024-Present) Name:Digna Carrion Relation to Subscriber:Self Name:Digna Carrion Payer ID:Not on file Group ID:Not on file Type:Medicaid Address: [place] [id number] HEALTH SAFETY NET PARTIAL [facility] TIERED HMO Member Subscriber Plan / Payer (Ef fective 2023-Present) Name:Digna Carrion Member ID:[id number] Relation to Subscriber:Self Name:Digna Carrion Subscriber ID:[id number] Payer ID:[id number] (NAIC) Group ID:Not on file Type:HMO Address: [address] SAFETY NET PARTIAL Member Subscriber Plan / Payer (Ef fective 2024-Present) Name:Digna Carrion Relation to Subscriber:Self Name:Digna Carrion Payer ID:Not on file Group ID:Not on file Type:Medicaid Address: [place] [id number] [facility] TIERED HMO HEALTH SAFETY NET PARTIAL [facility] HPI [facility] TIERED HMO HEALTH SAFETY NET PARTIAL Advance Directives For more information, please contact: [phone] (9AM - 5PM [facility], Tuesday-Tuesday) Documents on File Type Date Recorded Patient Electrical Panel Builder Expl anation Healthcare Proxy 02/11/2020 12:12 PM [...] 7:55 PM 03/28/2017 3:40 PM Care Teams Brewmaster Relationship Specialty Start Date End Date Nakul Golden MD [address] [place] [id number] PCP - General 11/29/23 Additional Source Comments The information contained in this document represents components of the legal health record. It is not the complete legal health record.[facility]
--- OUTSIDE RECORDS SUMMARY | 2025-01-10 12:41 | XMS_ITS | Encounter Summary ---
Author Organization [facility] Address [address] [place] [address] Phone Care Team Providers Care Sap Technical Architect Name Role Phone BraincynthiafabiolaStefani quiroga DO Primary Car e Provider Nakul Golden MD Primary Care Provider + Encounter Details Date Type Department Care Team (Latest Contact Info) Description 07/23/2019 Transcribe Orders [facility] Laboratory 30 [place] [address] Faustino Richards, CAROLE 30 [facility] [place] [address] [email or web address] Supervision of high-risk of young multigravida (Primary [...] Primary documented in this encounter Care Teams Sap Technical Architect Relationship Specialty Start Date End Date Stefani Crystal DO PCP - General Internal Medicine 03/24/17 11/28/23 Nakul Golden MD [address] [place] [address] PCP - General 11/29/23 documented as of this encounter Additional Source Comments The information contained in this document represents components of the legal health record. It is not the complete legal health record.[facility]
--- OUTSIDE RECORDS SUMMARY | 2025-01-10 12:41 | XMS_ITS | Encounter Summary ---
Author Organization [facility] Address [address] [place] [address] Phone Care Team Providers Care Offset Printer Name Role Phone Stefani Crystal DO Primary Car e Provider Nakul Golden MD Primary Care Provider + Encounter Details Date Type Department Care Team (Late st Contact Info) Description 02/08/2020 Procedure Pass [facility] L&D Procedures 30 [place] [address] Social History Tobacco Use Types Packs/Day Years [...] on filedocumented in this encounter Care Teams Offset Printer Relationship Specialty Start Date End Date Stefani Crystal DO PCP - General Internal Medicine 03/24/17 11/28/23 Nakul Golden MD [address] [place] [id number] PCP - General 11/29/23 documented as of this encounter Additional Source Comments The information contained in this document represents components of the legal health record. It is not the complete legal health record.[facility]
--- OUTSIDE RECORDS SUMMARY | 2025-01-10 12:42 | XMS_ITS | Patient Health Record ---
Author Organization 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 Problem Ulcerative colitis (70416971) Ulcerative colitis, unspecified with unspecified complications (K51.919) Active confirmed Plan Of Treatment Pending Test Test Name Order Date Aerobic Bacterial Culture 05/18/2016 ONE SWAB 05/18/2016 COMPLETE CBC WITH DIFF 05/18/2016 HSV 1 IGG 01/06/2016 Insurance Providers Payer Name Payer Address Payer Phone Subscriber Number Group Number Insured Name Patient Relationship to Insured Coverage Start Date Coverage End Date [facility] [address] [place] [address] [id number] [facility] Child - Insured has Financial Responsibility Medications Administered Medication Instructions Date of Administration Dosage Notes CEFTRIAXONE 05/18/2016 250 mg DRAWN UP WITH 0.9ML OF LIDOCAINE Medical (General) History Medical History History ICD Code Other specified abnormal uterine and vag inal bleeding N93.8 Surgical History Surgery Date(Month/Year) Left Knee Arthroscopy Hospitalization History Reason Date(Month/Year) 1 Vaginal Delivery
--- OUTSIDE RECORDS SUMMARY | 2025-01-10 12:42 | XMS_ITS | Encounter Summary ---
Author Organization [facility] Address [address] [facility] [address] [place] [address] Phone Care Team Providers Care Budget Engineer Name Role Phone Stefani Crystal DO Primary Car e Provider Nakul Golden MD Primary Care Provider + Encounter Details Date Type Department Care Team (Late st Contact Info) Description 03/24/2017 Procedure Pass [facility] L&D Procedures 30 [place] [address] Social History Tobacco Use Types Packs/Day Years [...] on filedocumented in this encounter Care Teams Budget Engineer Relationship Specialty Start Date End Date Stefani Crystal DO PCP - General Internal Medicine 03/24/17 11/28/23 Nakul Golden MD [address] [place] [address] PCP - General 11/29/23 documented as of this encounter Additional Source Comments The information contained in this document represents components of the legal health record. It is not the complete legal health record.[facility]
--- OUTSIDE RECORDS SUMMARY | 2025-01-10 12:42 | XMS_ITS | Clinical Summary ---
Author Organization [address] Address [address] [place] [phone] Phone Care Team Providers Care Statistician Applied Name Role Phone Nakul Golden MD Primary Care Provider [phone] Allergies Active Allergy Reactions Criticality Noted Date [...] Care Team Description 11/13/2024 Telephone Adult Medicine [facility] - [address] [phone] Nakul Golden MD 10/25/2024 10:01 AM EDT - 10/25/2024 11:59 PM EDT Hospital Encounter Radiology Department - [address] [phone] Subclinical hyperthyroidism Discharge Disposition: Home or Self Care 10/18/2024 3:30 PM EDT Office Visit Endocrinology - [address] [phone] Joesph Dinh MD Subclinical hyperthyroidism (Primary Dx); Multinodular goiter from Last 3 Months Immunizations Immunization Administration Dates Next Due Influenza Quadrivalent, 0.5m [...] Surgery Date Site/Laterality Comments SECTION 12/26/2012 PROCEDURE: SC DELIVERY ONLY KNEE SURGERY 2010 PROCEDURE: HISTORICAL KNEE SURGERY; COMMENT: left patellofemoral repair KNEE ARTHROSCOPY 07/28/2021 Right PROCEDURE: SC ARTHROSCOPY AID TX SPINE&/FX KNEE W/O FIXJ; COMMENT: Right knee arthroscopic plica resection. Medial meniscus repair. Partial lateral meniscectomy with Dr. Guan Medical History Medical History Date Comments Ulcerative colitis, chronic ([facility] V24, [facility] V28) DX:Ulcerative colitis, chron ic ([facility]) H/O colonoscopy 04/10/2015 DX:H/O colonosco py Refusal of blood transfusion s as patient is Anabaptist DX:Refusal of blood trans fusions as patient is Anabaptist Subclinical hyperthyroidism DX:S ubclinical hyperthyroidism History of colonoscopy 03/03/2021 DX:Histor y of colonoscopy; COMMENT: at [facility] by Dr. Sarmad Moreno - Normal [...] Signed Date: 10/25/2024 12:04 ET Workstation ID: [id number] Transcribed By: Self Edit Transcribed Date: 10/25/2024 [...] Signed Date: 10/25/2024 12:04 ET Workstation ID: [id number] Transcribed By: Self Edit Transcribed Date: 10/25/2024 [...] Most Recently Relevant to Health Maintenance Insurance [employer] Care Teams Statistician Applied Relationship Specialty Start Date End Date Nakul Golden MD [address] [place] [phone] PCP - General Internal Medicine 02/11/21
== END 2025-01-10 10:30 | disposition home or self-care (01) ==
LOC: HO.PMC 10:19
PROVIDERS: PCP Internal Medicine; Visit Provider Anesthesiology
DX: M46.1 Sacroiliitis, not elsewhere classified (principal); M47.816 Spondylosis without myelopathy or radiculopathy, lumbar region; M53.3 Sacrococcygeal disorders, not elsewhere classified
CPT/HCPCS: 99213

== ENCOUNTER 2025-02-16 09:18 | Outpatient (REF) | payer OTHER, MEDICAID, SELFPAY ==
--- NOTE | ~2025-02-16 | CT_ITS ---
CLINICAL HISTORY: M46.1 - Sacroiliitis, not elsewhere classified Exam: Unenhanced CT of the pelvis with multiplanar reformats. Comparison: None. Findings: Osseous structures: There is no fracture or dislocation. No focal osseous lesions. No significant arthritic changes. Specifically, no evidence of significant sacroiliac arthritic disease with no joint space narrowing, subchondral eburnation or spurring, or erosions. No significant lower lumbar degenerative disease. Trace amount of free pelvic fluid is likely physiologic. No pelvic masses or adenopathy. Uterus appears to be surgically absent. Urinary bladder is nondistended. Visualized bowel loops reveal no wall thickening or distention. The appendix is unremarkable. Impression: 1. Unremarkable CT pelvis. Specifically, no CT evidence of significant sacroiliac arthropathy. This document has been electronically signed by: Stanley Velez MD on 02/18/2025 16:10:57
--- OUTSIDE RECORDS SUMMARY | 2025-02-16 09:21 | XMS_ITS | Encounter Summary ---
Author Organization [facility] Address [address] [place] [address] Phone Care Team Providers Care Marine [employer] Task [employer] Planners Name Role Phone BraincynthiafabiolaStefani quiroga DO Primary Car e Provider Nakul Golden MD Primary Care Provider + Encounter Details Date Type Department Care Team (Latest Contact Info) Description 07/23/2019 Transcribe Orders [facility] Phleb Main 30 [place] [address] Faustino Richards, [facility] 30 [facility] [place] [address] [email or web address] Supervision of high-risk of young multigravida [...] Primary documented in this encounter Care Teams [employer] Planners Relationship Specialty Start Date End Date Stefani Crystal DO [address] [place] [address] PCP - General Internal Medicine 03/24/17 11/28/23 Nakul Golden MD [address] [place] [address] PCP - General 11/29/23 documented as of this encounter Additional Source Comments The information contained in this document represents components of the legal health record. It is not the complete legal health record.[facility]
--- OUTSIDE RECORDS SUMMARY | 2025-02-16 09:21 | XMS_ITS | Clinical Summary ---
Author Organization [address] Address [address] [place] [phone] Phone Care Team Providers Care Branch Office Administrator Name Role Phone Nakul Golden MD Primary Care Provider [phone] Allergies Active Allergy Reactions Criticality Noted Date [...] 05/10/2016 Ulcerative colitis (CMS/HCC V24, CMS/HCC V28) Immunizations Immunization Administration Dates Next Due Influenza [...] Surgery Date Site/Laterality Comments SECTION 12/26/2012 PROCEDURE: OR DELIVERY ONLY KNEE SURGERY 2010 PROCEDURE: HISTORICAL KNEE SURGERY; COMMENT: left patellofemoral repair KNEE ARTHROSCOPY 07/28/2021 Right PROCEDURE: OR ARTHROSCOPY AID TX SPINE&/FX KNEE W/O FIXJ; COMMENT: Right knee arthroscopic plica resection. Medial meniscus repair. Partial lateral meniscectomy with Dr. Guan Medical History Medical History Date Comments Ulcerative colitis, chronic ([facility] V24, [facility] V28) DX:Ulcerative colitis, chron ic ([facility]) H/O colonoscopy 04/10/2015 DX:H/O colonosco py Refusal of blood transfusion s as patient is Quaker DX:Refusal of blood trans fusions as patient is Quaker Subclinical hyperthyroidism DX:S ubclinical hyperthyroidism History of colonoscopy 03/03/2021 DX:Histor y of colonoscopy; COMMENT: at [facility] by Dr. Sarmad Moreno - Normal [...] 05/08/2021, 05/30/2020, 05/02/2020 Influenza Vaccine (#1) 2024 , 12/31/2022, 04/15/2022, [...] Procedure Name Priority Date/Time Associated Diagnosis Comments COLONOSCOPY Routine 03/03/2021 HPV Routine 09/09/2016 from Last 3 Months or Most Recently Relevant to Health Maintenance Results * Colonoscopy (03/03/2021) Colonoscopy no interpretation , abstracted Anatomical Region Laterality Modality Other [facility] Provider HEALTH MAINTENANCE Final Result * Cervical Cancer Screening: HPV (09/09/2016) Cervical Cancer Screening: HPV negative, abstracted Historical Provider HEALTH MAINTENANCE Final Result from Last 3 Months or Most Recently Relevant to Health Maintenance Insurance [employer] Care Teams Branch Office Administrator Relationship Specialty Start Date End Date Nakul Golden MD [address] [place] [phone] PCP - General Internal Medicine 02/11/21
--- OUTSIDE RECORDS SUMMARY | 2025-02-16 09:21 | XMS_ITS | Encounter Summary ---
Author Organization [facility] Address [address] [place] [address] Phone Care Team Providers Care Mixing Supervisor Name Role Phone BessiedanielStefani [place] DO Primary Car e Provider Nakul Golden MD Primary Care Provider + Encounter Details Date Type Department Care Team (Late st Contact Info) Description 10/27/2023 Procedure Pass OR Admitting Dept - Virtual Department 30 [place] [address] Social History Tobacco Use Types Packs/Day Years [...] on filedocumented in this encounter Care Teams Mixing Supervisor Relationship Specialty Start Date End Date Stefani Crystal DO [address] [place] [address] PCP - General Internal Medicine 03/24/17 11/28/23 Nakul Golden MD 4 [place] [address] PCP - General 11/29/23 documented as of this encounter Additional Source Comments The information contained in this document represents components of the legal health record. It is not the complete legal health record.[facility]
--- OUTSIDE RECORDS SUMMARY | 2025-02-16 09:21 | XMS_ITS | Encounter Summary ---
Author Organization [facility] Address [address] [employer] [facility] [address] [place] [address] Phone Care Team Providers Care Sports Health Club Membership Advisors Name Role Phone Stefani Crystal DO Primary Car e Provider Nakul Golden MD Primary Care Provider + Encounter Details Date Type Department Care Team (Late st Contact Info) Description 03/24/2017 Procedure Pass [facility] L&D Procedures 30 [place] [address] Social History Tobacco Use Types Packs/Day Years [...] on filedocumented in this encounter Care Teams Sports Health Club Membership Advisors Relationship Specialty Start Date End Date Stefani Crystal DO [address] [place] [address] PCP - General Internal Medicine 03/24/17 11/28/23 Nakul Golden MD [address] [place] [address] PCP - General 11/29/23 documented as of this encounter Additional Source Comments The information contained in this document represents components of the legal health record. It is not the complete legal health record.[facility]
--- OUTSIDE RECORDS SUMMARY | 2025-02-16 09:21 | XMS_ITS | Clinical Summary ---
Author Organization [facility] Address [address] [facility] [address] [place] [address] Phone Care Team Providers Care Temporary Data Entry Clerk Name Role Phone Nakul Golden MD Primary [...] of blood transfusion s as patient is Mandaen 03/27/2017 Overview (03/27/2017): Patient confirms no blood [...] presented in labor for TOLAC. care at [facility]. Prior C/S was for FTP at 7-8 cm and face presentation. Assessment & Plan (03/27/2017 5:36 PM EST): Patient required emergent RCS due to maternal hypotension and tachycardia suspicious for uterine rupture. Currently doing well. No operative complications. Encounter for trial of labor 03/24/2017 03/26/2017 Overview (03/24/2017): Patient presented in labor for TOLAC. care at [facility]. Prior C/S was for FTP at 7-8 [...] HEPATITIS C SCREENING Completed 07/06/2022 , 07/29/2020, 07/23/2019, Additional history exists HIV ONE-TIME SCREENING (18-65 YEARS) Completed 07/06/2022 [...] Pap Test (08/11/2023 12:00 AM EDT) [place] [address] Prospect Manager: Zahra Beltran MD X RAY TECH Cytology Report FINAL DIAGNOSIS A. PAP SMEAR (THIN PREP) CE: SPECIMEN ADEQUACY: Satisfactory for evaluation; transformation zone present. INTERPRETATION: EPITHELIAL CELL ABNORMALITY - SQUAMOUS. Atypical squamous cells of undetermined significance. Coccobacilli consistent with shift in zackery This specimen was analyzed by the automated ThinPrep Imaging System ([employer] and manually rescreened by a dog license officer supervisor and/or pathologist. Electronically Signed Out By: MD [...] 16, 18 and 45. Testing performed by [employer] HR-HPV analysis. Clinical correlation is advised. This HPV test was performed at [facility], [address] [place] [address]. This test has been FDA approved for both SurePath and ThinPrep cervical cytology specimens. The accuracy and precision of this test for all other specimen sources has been verified in the Cytopathology Laboratory of the [facility] and has not been cleared or approved by the U.S. Food and Drug Administration. Clinical correlation is advised. CLINICAL HISTORY Date of Last Menstrual Period: 07-20-2023 Infection History: HPV: OTHER HIGH RISK, 2022 Other Clinical Conditions: Screening Pap SPECIMEN SOURCE A: PAP SMEAR (THIN PREP) CE Patient Name: DIGNA CARRION : 1990 (Age: 32) Sex: F Institution: [facility] Location: [facility] Date of Collection: 08/11/2023 Date of Reported: 08/17/2023 16:00 Results to: Gideon Barksdale MD [facility] Final Diagnosis A. PAP SMEAR (THIN PREP) CE: SPECIMEN ADEQUACY: Satisfactory for evaluation; transformation zone present. INTERPRETATION: EPITHELIAL CELL ABNORMALITY - SQUAMOUS. Atypical squamous cells of undetermined significance. Coccobacilli consistent with shift in zackery This specimen was analyzed by the automated ThinPrep Imaging System ([employer] and manually rescreened by a dog license officer supervisor and/or pathologist. [facility] Results\Inte rpretation A. PAP SMEAR (THIN PREP) [...] types 16, 18 and 45.Testing performed by [employer] HR-HPV analysis. Clinical correlation is advised. This HPV test was performed at [facility], [address] [place] [address]. This test has been FDA approved for both SurePath and ThinPrep cervical cytology specimens. The accuracy and precision of this test for all other specimen sources has been verified in the Cytopathology Laboratory of the [facility] and has not been cleared or approved by the U.S. Food and Drug Administration. Clinical correlation is advised. [facility] Conversion Type (Conversion Source) 08/11/2023 08/12/2023 9:17 AM EDT Gideon Barksdale MD CYTOLOGY ORDERABLES Edited Resul t - Final Performing Organization Address [facility] Co de Phone Number [address] [address] * Hepatitis C antibody, qualitative (07/06/2022 10:41 AM EDT) HCV NON-REACTIV E NON-REACTI VE [facility] Blood 07/06/2022 10:4 1 AM EDT 07/06/2022 10:44 AM EDT Gideon Barksdale MD LAB BLOOD BKR ORDERABLES Final R esult Performing Organization Address [facility] [[email or web address]] de Phone Number [address] [address] from Last 3 Months or Most Recently Relevant to Health Maintenance Insurance [facility] TIERED HMO HEALTH SAFETY NET PARTIAL [facility] TIERED HMO HEALTH SAFETY NET PARTIAL [facility] SAFETY NET PARTIAL [facility] SAFETY NET PARTIAL [facility] HPI [facility] TIERED HMO NET PARTIAL HEALTH SAFETY NET PARTIAL [facility] TIERED HMO Member Subscriber Plan / Payer (Ef fective 2023-Present) Name:Carrion Dign[employer] Member ID:[id number] Relation to Subscriber:Self Name:Digna Carrion Subscriber ID:[id number] Payer ID:[id number] (NAIC) Group ID:Not on file Type:HMO Address: [address] SAFETY NET PARTIAL [facility] TIERED HMO HEALTH SAFETY [place] [address] [facility] HPI [facility] TIERED HMO HEALTH SAFETY NET PARTIAL Advance Directives For more information, please contact: [phone] (9AM - 5PM [place], Tuesday-Tuesday) Documents on File Type Date Recorded Patient Maternal Fetal Physician Expl anation Healthcare Proxy 02/11/2020 12:12 PM [...] 7:55 PM 03/28/2017 3:40 PM Care Teams Temporary Data Entry Clerk Relationship Specialty Start Date End Date Nakul Golden MD [address] [place] [address] PCP - General 11/29/23 Additional Source Comments The information contained in this document represents components of the legal health record. It is not the complete legal health record.[facility]
--- OUTSIDE RECORDS SUMMARY | 2025-02-16 09:21 | XMS_ITS | Encounter Summary ---
Author Organization [facility] Address [address] [place] [address] Phone Care Team Providers Care Program Advisor Name Role Phone Stefani Crystal DO Primary Car e Provider Nakul Golden MD Primary Care Provider + Encounter Details Date Type Department Care Team (Late st Contact Info) Description 02/08/2020 Procedure Pass [facility] L&D Procedures [address] [place] [address] Social History Tobacco Use Types Packs/Day Years [...] on filedocumented in this encounter Care Teams Program Advisor Relationship Specialty Start Date End Date Stefani Crystal DO [address] [place] [address] PCP - General Internal Medicine 03/24/17 11/28/23 Nakul Golden MD [address] [place] [address] PCP - General 11/29/23 documented as of this encounter Additional Source Comments The information contained in this document represents components of the legal health record. It is not the complete legal health record.[facility]
--- OUTSIDE RECORDS SUMMARY | 2025-02-16 09:21 | XMS_ITS | Patient Health Record ---
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 [address] [place] [address] [id number] ANGEL [facility] Child - Insured has Financial [...]
== END 2025-02-16 09:19 | disposition home or self-care (01) ==
LOC: HO.CT 09:18
PROVIDERS: PCP Internal Medicine; Visit Provider Anesthesiology
DX: M46.1 Sacroiliitis, not elsewhere classified (principal); M53.3 Sacrococcygeal disorders, not elsewhere classified
CPT/HCPCS: 72192

== ENCOUNTER → 2025-02-16 09:21 | Outpatient (BNV) | payer OTHER, MEDICAID, SELFPAY | PROVIDERS: PCP Internal Medicine; Visit Provider Radiology Diagnostic Radiology | DX: M46.1 Sacroiliitis, not elsewhere classified (principal) | CPT/HCPCS: 72192 ==

== ENCOUNTER 2025-02-20 10:22 | Outpatient (AMB) | payer OTHER, MEDICAID, SELFPAY ==
[2025-02-20 10:24] VITALS: BP 128/77; PULSE 70; RESP 16; O2SAT 99; BMI 23.3
--- NOTE | 2025-02-20 10:24 | MHC.OFFVIS ---
Vital Signs 02/20/25 10:24 Height 5 ft 7 in Weight 149 lb BMI 23.3 BP 128/77 Blood Pressure Location Rt brachial Position Sitting Respiration 16 Pulse 70 Pulse Source Pulse Oximeter Pulse Oximetry (%) 99 Oxygen Delivery Method Room Air Intake Visit Reasons: CT FOLLOW UP Softball Coach Required: No Allergies metoclopramide (From Reglan) Adverse Reaction (Verified 02/20/25 10:28) Nausea HPI Comments Details: Ms. Wasserman is in my office 2 months after therapeutic sacroiliac joint injection. She is in my office after CT scan was performance her pelvis. The CT scan does not demonstrate any red flags which would be indicative of the source of the pain in the pelvic bones. She continues to were sacroiliac joint belt, she reports minimal pain relief on the belt. She reports awkwardness of the sacroiliac joint belt and inability to do some chores in it. She continues to do home exercise programs she learned at physical therapy. She tries to stay active and perform functional advent activities. She takes NSAIDs for her pain with minimal relief. She had diagnostic sacroiliac joint injection with at least 9 hours of 100% pain relief. She had several sacroiliac joint steroid injections which resulted initially with prolonged pain relief lasting 6-7 month. However lately of the last sacroiliac joint injection she received resulted only in 1 month pain relief. 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 I consulted this MRI with neurosurgeon and he did not find any pathology which would indicate radiculopathy on the right. I offered the patient to repeat right sacroiliac joint injection, she stated that in the past she had 80% pain relief 6 months after the procedure. She has history of 3 pregnancies with vaginal deliveries. I will schedule this patient for right and 3 weeks after left Nevro SI joint fusion. Patient agreed to go for the procedure. Risks and benefits were explained to the patient. [facility] Medical History (Updated 09/05/24 @ 22:37 by Blanca Eaton MD) PTSD (post-traumatic stress disorder) Hyperthyroidism Bulimia nervosa Sacroiliitis Spondylosis of lumbar spine Tear of MCL (medial collateral ligament) of knee Depression Anxiety Surgical History (Updated 08/24/24 @ 10:00 by Marguerite Hernandez RN) H/O knee surgery H/O knee surgery H/O partial thyroidectomy History of hysterectomy Tubal ligation status Social History Household Members: Children Alcohol intake: current Alcohol intake frequency: a few times a month Patient Tobacco Use Status: Never used Tobacco Review of Systems Const All systems reviewed & are unremarkable except as noted in HPI and below ENT Reports Normal hearing present Neuro Reports Normal hearing present, Denies Abnormal speech present and Denies Sensory deficit (Neuro) Physical Exam Vital Signs: Last Vital Signs Pulse 70 02/20/25 10:24 Resp 16 02/20/25 10:24 BP 128/77 02/20/25 10:24 Pulse Ox 99 02/20/25 10:24 Oxygen Delivery Method Room Air 02/20/25 10:24 BMI result Body Mass Index 23.3 Const General: cooperative, healthy appearing, comfortable, well developed, alert and awake Nutritional Appearance: average body habitus and well nourished Orientation/consciousness: patient oriented x3 Limitations: no limitations Chest Chest palpation & inspection: normal inspection of the chest Resp Effort & Inspection: normal respiratory effort, able to speak in complete sentences, no audible wheezes, no cough, respiratory effort not decreased, no grunting and not labored GI Inspection: Yes normal to inspection Back/Spine/Pelvis Other: Minimal tenderness of palpation paraspinal spinal region of lumbar spine. Flexing forward and flexing backwards aggravate her pain patient . Farhan test is positive on the right, pelvic compression test is positive bilaterally, Yeomann test is positive bilaterally, pelvic distraction test is positive bilaterally, tenderness on palpation in projection of the bilateral SI joints. SLR is negative bilaterally. Reflexes are symmetrical +2 Achilles bilateral and patellar. Neuro General: patient oriented x3 Cranial nerves: Yes Normal hearing present Speech: No Abnormal speech present Sensory Exam: No Sensory deficit (Neuro) Results Reviewed Results Reviewed: MR LUMBAR SPINE WITHOUT CONTRAST CLINICAL INFORMATION: Lumbar radiculopathy. Right lower extremity pain, numbness, and weakness. COMPARISON: CT abdomen and pelvis 04/11/2020. TECHNIQUE: MRI of the lumbar spine was obtained using routine sequences without contrast. FINDINGS: Alignment is normal. Vertebral body heights are preserved. No acute bone marrow signal changes. Intervertebral disc height and signal intensity is maintained at all levels. Annular contours are normal and there is no canal or neuroforaminal compromise. 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 Otherwise no mass effect on the traversing or foraminal nerve roots elsewhere within the [id number] of this examination. No canal stenosis. The tip of the conus medullaris is located at T12-L1. No mass effect on the conus or visualized distal cord signal intensity is normal. Limited visualization of the retroperitoneal anatomy reveals no abnormal findings. Psoas and paraspinal muscle groups are symmetric. 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 Otherwise unremarkable examination. No mass effect on the traversing or foraminal nerve roots. No canal stenosis. CT scan of the pelvis 02/16/2025 Osseous structures there is no fracture or dislocation, no focal osseous lesion, no significant arthritic changes, no significant lower lumbar degenerative disease. Trace amount of free fluid in the pelvis is likely physiologic. No pelvic masses or adenopathy. Uterus appears to be surgically absent. Urinary bladder is nondistended. Visualized bowel loops reveal no wall thickening or distention. The appendix is unremarkable. Impression unremarkable CT pelvis. Assessment & Plan Assessment & Plan (1) Sacroiliitis: Code(s): M46.1 - Sacroiliitis, not elsewhere classified Category: Medical (2) Spondylosis of lumbar spine: Code(s): M47.816 - Spondylosis without myelopathy or radiculopathy, lumbar region Category: Medical (3) Sacroiliac joint dysfunction of right side: Code(s): M53.3 - Sacrococcygeal disorders, not elsewhere classified Category: Medical Plan MRI is positive for conjoined right L4 and L5 sitting in 1 foraminal orifice. Otherwise MRI is unremarkable and normal I discussed the case with our neurosurgery Dr. Garcia who stated that after examination of the MRI he did not see anything indicative of possible radiculopathy. The patient again is in my office complaining on severe pain in the right side with radiation into the right hip. The physical exam is as above. Good results again from sacroiliac joint injection on the right. However it soon started to fade ineffectiveness. SI joint belt was prescribed to the patient. The patient wears it every day during the daytime. She reports minimal help from SI joint belt. In the past she completed multiple sessions of physical therapy which were minimally effective to alleviate her pain. She continues to wear SI joint belt. She reports minimal improvement with the SI joint belt. CT scan results see as above. No focal issues which could explain patient pain not detected on the image. She completed 8 weeks of physical therapy. She continues to do home exercise program. She remains active. She is taking NSAIDs with minimal to moderate pain improvement. Sometimes it requires exuberant doses of the NSAIDs to do the procedure. On physical exam there is very prominent picture of the right SI joint dysfunction as well as some SI joint dysfunction on the left side. We will perform right sacroiliac joint fusion 1st because it is most painful SI joint. SI joint fusion on the left we will follow in 3 weeks after that. Risks and benefits were carefully explained to the patient. Patient agreed to go for the procedure. Coding Level of Care Code Est Pt Level 3 (58050) Diagnoses Sacroiliitis M46.1 Spondylosis of lumbar spine M47.816 Sacroiliac joint dysfunction of right side M53.3
--- OUTSIDE RECORDS SUMMARY | 2025-02-20 12:17 | XMS_ITS | Encounter Summary ---
Author Organization [facility] Address [address] [place] [address] Phone Care Team Providers Care Student Officer Name Role Phone BessiedanielStefani Collins [place] DO Primary Car e Provider Nakul Golden MD Primary Care Provider + Encounter Details Date Type Department Care Team (Late st Contact Info) Description 10/27/2023 Procedure Pass OR Admitting Dept - Virtual Department [address] [place] [address] Social History Tobacco Use Types Packs/Day Years [...] on filedocumented in this encounter Care Teams Student Officer Relationship Specialty Start Date End Date Stefani Crystal DO [address] [place] [address] PCP - General Internal Medicine 03/24/17 11/28/23 Nakul Golden MD [address] [place] [address] PCP - General 11/29/23 documented as of this encounter Additional Source Comments The information contained in this document represents components of the legal health record. It is not the complete legal health record.[facility]
--- OUTSIDE RECORDS SUMMARY | 2025-02-20 12:17 | XMS_ITS | Clinical Summary ---
Author Organization [address] Address [address] [place] [phone] Phone Care Team Providers Care Porcelain Slusher Name Role Phone Nakul Golden MD Primary Care Provider [phone] Allergies Active Allergy Reactions Criticality Noted Date [...] Surgery Date Site/Laterality Comments SECTION 12/26/2012 PROCEDURE: IN DELIVERY ONLY KNEE SURGERY 2010 PROCEDURE: HISTORICAL KNEE SURGERY; COMMENT: left patellofemoral repair KNEE ARTHROSCOPY 07/28/2021 Right PROCEDURE: IN ARTHROSCOPY AID TX SPINE&/FX KNEE W/O FIXJ; COMMENT: Right knee arthroscopic plica resection. Medial meniscus repair. Partial lateral meniscectomy with Dr. Guan Medical History Medical History Date Comments Ulcerative colitis, chronic ([facility] V24, [facility] V28) DX:Ulcerative colitis, chron ic ([facility]) H/O colonoscopy 04/10/2015 DX:H/O colonosco py Refusal of blood transfusion s as patient is Judaism DX:Refusal of blood trans fusions as patient is Judaism Subclinical hyperthyroidism DX:S ubclinical hyperthyroidism History of colonoscopy 03/03/2021 DX:Histor y of colonoscopy; COMMENT: at [facility] by Dr. Sarmad Moreno - Normal mucosa [...] , abstracted Anatomical Region Laterality Modality Other [facility] Provider HEALTH MAINTENANCE Final Result * Cervical Cancer Screening: HPV (09/09/2016) Cervical Cancer Screening: HPV negative, abstracted Historical Provider HEALTH MAINTENANCE Final Result from Last 3 Months or Most Recently Relevant to Health Maintenance Insurance [employer] Care Teams Porcelain Slusher Relationship Specialty Start Date End Date Nakul Golden MD [address] [place] [phone] PCP - General Internal Medicine 02/11/21
--- OUTSIDE RECORDS SUMMARY | 2025-02-20 12:17 | XMS_ITS | Clinical Summary ---
Author Organization [facility] Address [address] [facility] [address] [place] [address] Phone Care Team Providers Care Battery Mechanic Name Role Phone Nakul Golden MD Primary [...] of blood transfusion s as patient is Mu-ism 03/27/2017 Overview (03/27/2017): Patient confirms no blood [...] presented in labor for TOLAC. care at [facility]. Prior C/S was for FTP at 7-8 cm and face presentation. Assessment & Plan (03/27/2017 5:36 PM EST): Patient required emergent RCS due to maternal hypotension and tachycardia suspicious for uterine rupture. Currently doing well. No operative complications. Encounter for trial of labor 03/24/2017 03/26/2017 Overview (03/24/2017): Patient presented in labor for TOLAC. care at [facility]. Prior C/S was for FTP [...] Pap Test (08/11/2023 12:00 AM EDT) [place] [address] Lan/Wan Engineer: Zahra Beltran MD MICROCOMPUTER TECHNICIAN Cytology Report FINAL DIAGNOSIS A. PAP SMEAR (THIN PREP) CE: SPECIMEN ADEQUACY: Satisfactory for evaluation; transformation zone present. INTERPRETATION: EPITHELIAL CELL ABNORMALITY - SQUAMOUS. Atypical squamous cells of undetermined significance. Coccobacilli consistent with shift in zackery This specimen was analyzed by the automated ThinPrep Imaging System (NovaTorque.) and manually rescreened by a centrifugal supervisor and/or pathologist. Electronically Signed Out By: [...] 16, 18 and 45. Testing performed by [facility] HR-HPV analysis. Clinical correlation is advised. This HPV test was performed at [facility], [address] [place] [address]. This test has been FDA approved for both SurePath and ThinPrep cervical cytology specimens. The accuracy and precision of this test for all other specimen sources has been verified in the Cytopathology Laboratory of the [facility] and has not been cleared or approved by the U.S. Food and Drug Administration. Clinical correlation is advised. CLINICAL HISTORY Date of Last Menstrual Period: 07-20-2023 Infection History: HPV: OTHER HIGH RISK, 2022 Other Clinical Conditions: Screening Pap SPECIMEN SOURCE A: PAP SMEAR (THIN PREP) CE Patient Name: DIGNA CARRION : 1990 (Age: 32) Sex: F Institution: [facility] Location: [facility] Date of Collection: 08/11/2023 Date of Reported: 08/17/2023 16:00 Results to: Gideon Barksdale MD [facility] Final Diagnosis A. PAP SMEAR (THIN PREP) CE: SPECIMEN ADEQUACY: Satisfactory for evaluation; transformation zone present. INTERPRETATION: EPITHELIAL CELL ABNORMALITY - SQUAMOUS. Atypical squamous cells of undetermined significance. Coccobacilli consistent with shift in zackery This specimen was analyzed by the automated ThinPrep Imaging System (Apprema Garo.) and manually rescreened by a centrifugal supervisor and/or pathologist. [facility] Results\Inte rpretation A. PAP SMEAR (THIN PREP) [...] types 16, 18 and 45.Testing performed by [employer] HR-HPV analysis. Clinical correlation is advised. This HPV test was performed at [facility], [address] [place] [address]. This test has been FDA approved for both SurePath and ThinPrep cervical cytology specimens. The accuracy and precision of this test for all other specimen sources has been verified in the Cytopathology Laboratory of the [facility] and has not been cleared or approved by the U.S. Food and Drug Administration. Clinical correlation is advised. [facility] Conversion Type (Conversion Source) 08/11/2023 08/12/2023 9:17 AM EDT Gideon Barksdale MD CYTOLOGY ORDERABLES Edited Resul t - Final Performing Organization Address [facility] Co de Phone Number [address] [phone] * Hepatitis C antibody, qualitative (07/06/2022 10:41 AM EDT) HCV NON-REACTIV E NON-REACTI VE [facility] Blood 07/06/2022 10:4 1 AM EDT 07/06/2022 10:44 AM EDT Gideon Barksdale MD LAB BLOOD BKR ORDERABLES Final R esult Performing Organization Address [facility] de Phone Number [address] [phone] from Last 3 Months or Most Recently Relevant to Health Maintenance Insurance [facility] TIERED HMO HEALTH SAFETY NET PARTIAL [facility] TIERED HMO HEALTH SAFETY NET PARTIAL [facility] SAFETY NET PARTIAL [facility] SAFETY NET PARTIAL [facility] HPI [facility] TIERED HMO NET PARTIAL HEALTH SAFETY NET PARTIAL [facility] TIERED HMO Member Subscriber Plan / Payer (Ef fective 2023-Present) Name:Carrion Digna Member ID:[id number] Relation to Subscriber:Self Name:Digna Carrion Subscriber ID:[id number] Payer ID:[id number] (NAIC) Group ID:Not on file Type:HMO Address: [address] SAFETY NET PARTIAL [facility] TIERED HMO HEALTH [place]AFETY [place] [address] [facility] HPI [facility] TIERED HMO HEALTH SAFETY NET PARTIAL Advance Directives For more information, please contact: [phone] (9AM - 5PM [place], Tuesday-Tuesday) Documents on File Type Date Recorded Patient Senior Director Of [employer] Expl anation Healthcare Proxy 02/11/2020 12:12 PM [...] 7:55 PM 03/28/2017 3:40 PM Care Teams Battery Mechanic Relationship Specialty Start Date End Date Nakul Golden MD [address] [place] [id number] PCP - General 11/29/23 Additional Source Comments The information contained in this document represents components of the legal health record. It is not the complete legal health record.[facility]
--- OUTSIDE RECORDS SUMMARY | 2025-02-20 12:17 | XMS_ITS | Encounter Summary ---
Author Organization [facility] Address [address] [place] [phone] Phone Care Team Providers Care Mine Exploration Engineer Name Role Phone Stefani Crystal DO Primary Car e Provider Nakul Golden MD Primary Care Provider + Encounter Details Date Type Department Care Team (Late st Contact Info) Description 02/08/2020 Procedure Pass [facility] L&D Procedures [address] [place] [address] Social History Tobacco Use Types Packs/Day Years [...] on filedocumented in this encounter Care Teams Mine Exploration Engineer Relationship Specialty Start Date End Date Stefani Crystal DO [address] [place] [address] PCP - General Internal Medicine 03/24/17 11/28/23 Nakul Golden MD [address] [place] [address] PCP - General 11/29/23 documented as of this encounter Additional Source Comments The information contained in this document represents components of the legal health record. It is not the complete legal health record.[facility]
--- OUTSIDE RECORDS SUMMARY | 2025-02-20 12:17 | XMS_ITS | Encounter Summary ---
Author Organization [facility] Address [address] [place] [address] Phone Care Team Providers Care It Support Specialist Name Role Phone BraincynthiafabiolaStefani quiroga DO Primary Car e Provider Nakul Golden MD Primary Care Provider + Encounter Details Date Type Department Care Team (Latest Contact Info) Description 07/23/2019 Transcribe Orders [facility] Phleb Main [address] [place] [address] Faustino Richards, [facility] [address] [facility] [place] [address] [email or web address] Supervision of high-risk of young multigravida [...] Primary documented in this encounter Care Teams It Support Specialist Relationship Specialty Start Date End Date Stefani Crystal DO [address] [place] [phone] PCP - General Internal Medicine 03/24/17 11/28/23 Nakul Golden MD [address] [place] [id number] PCP - General 11/29/23 documented as of this encounter Additional Source Comments The information contained in this document represents components of the legal health record. It is not the complete legal health record.[facility]
--- OUTSIDE RECORDS SUMMARY | 2025-02-20 12:17 | XMS_ITS | Encounter Summary ---
Author Organization [facility] Address [address] [facility] [address] [place] [address] Phone Care Team Providers Care Financial Operations Consultant Name Role Phone Stefani Crystal DO Primary Car e Provider Nakul Golden MD Primary Care Provider + Encounter Details Date Type Department Care Team (Late st Contact Info) Description 03/24/2017 Procedure Pass [facility] L&D Procedures [address] [place] [address] Social History Tobacco Use Types Packs/Day Years [...] on filedocumented in this encounter Care Teams Financial Operations Consultant Relationship Specialty Start Date End Date Stefani Crystal DO [address] [place] [address] PCP - General Internal Medicine 03/24/17 11/28/23 Nakul Golden MD [address] [place] [id number] PCP - General 11/29/23 documented as of this encounter Additional Source Comments The information contained in this document represents components of the legal health record. It is not the complete legal health record.[facility]
== END 2025-02-20 10:35 | disposition home or self-care (01) ==
LOC: HO.PMC 10:23
PROVIDERS: PCP Internal Medicine; Visit Provider Anesthesiology
DX: M46.1 Sacroiliitis, not elsewhere classified (principal); M47.816 Spondylosis without myelopathy or radiculopathy, lumbar region; M53.3 Sacrococcygeal disorders, not elsewhere classified
CPT/HCPCS: 99213